=== PATIENT | male | born 1940 | race Caucasian/White ===

== ENCOUNTER → 2017-12-16 | Outpatient (CLI) | payer MEDICARE, OTHER ==
[~2017-12-16] MED LIST: ASPI81TA28 PO; CHOL500021 PO; COEN1CAP17 PO; CRS/10 PO; CYAN1LOZ2 PO; FLUT50SP45 NAE; LUTE6TAB PO; NAPR1TAB9 PO; RABE20TA5 PO; VITA1CAP5 PO; [UNRECOGNIZED DRUG - CODE] PO
--- NOTE | 2017-12-16 14:16 | DIAGNOSTIC IMAGING REPORT ---
CHEST 2 VIEWS ROUTINE CLINICAL HISTORY: Preoperative chest COMPARISON STUDY: No previous studies for comparison. FINDINGS: The cardiac and mediastinal contours are normal. There is no evidence of focal pulmonary consolidation. There is no evidence of failure. No pleural effusions are visualized.[ IMPRESSION: No active disease in the chest. Electronically signed by: Sj Shen M.D. 12/16/2017 2:14 PM Dictated Date/Time: 12/16/2017 2:09 PM
[2017-12-16 14:30] LABS: BASO % 0.6 %; BASO ABS # 0.05 K/uL (0-0.2); EOS % 4.8 %; EOS ABS # 0.37 K/uL (0-0.5); HEMATOCRIT 39.6 % (42-52); HEMOGLOBIN 13.8 g/dL (14.0-18.0); IG# 0.03 K/uL (0.00-0.02); LYMPH ABS # 2.78 K/uL (1.2-3.4); MEAN CELL VOLUME 88.4 fL (80-100); MEAN CORPUSCULAR HEMOGLOBIN 30.8 pg (25-34); MEAN CORPUSCULAR HGB CONC 34.8 g/dl (32-36); MEAN PLATELET VOLUME 11.8 fL (7.4-10.4); MONO % 6.5 %; NEUT % 51.7 %; NEUT ABS # 3.99 K/uL (1.4-6.5); PLATELET COUNT 196 K/uL (130-400); RED CELL DISTRIBUTION WIDTH CV 13.1 % (11.5-14.5); RED CELL DISTRIBUTION WIDTH SD 42.3 fL (36.4-46.3); WHITE BLOOD COUNT 7.72 K/uL (4.8-10.8)
[2017-12-16 14:38] LABS: ALBUMIN 3.8 gm/dl (3.4-5.0); BLOOD UREA NITROGEN 19 mg/dl (7-18); CALCIUM 8.7 mg/dl (8.5-10.1); CARBON DIOXIDE 25 mmol/L (21-32); GLUCOSE 142 mg/dl (70-99); POTASSIUM 3.8 mmol/L (3.5-5.1); SODIUM 138 mmol/L (136-145)
[2017-12-16 14:39] LABS: PTT PATIENT 25.7 SECONDS (21.0-31.0)
[2017-12-17 05:45] LABS: HEMOGLOBIN A1C 5.6 % (4.5-5.6)
== END | disposition home or self-care (01) ==
LOC: C.CPL 14:02
PROVIDERS: ATTEND Orthopaedic Surgery Sports Medicine
DX: Z01.810 Encounter for preprocedural cardiovascular examination (principal); Z01.811 Encounter for preprocedural respiratory examination; Z01.812 Encounter for preprocedural laboratory examination

== ENCOUNTER 2018-07-22 06:05 | Inpatient (IN) ==
--- NOTE | 2018-06-25 10:38 | Anesthesiology Consultation ---
Date of Service June 25, 2018 Assessment & Plan (1) Encounter for pre-operative examination: Chart Review Chart Review: Acceptable Risk for Surgery and Patient NOT seen in Pre Admission Testing History Surgery Operation Date: 07/22/18 11:35 Proposed Procedures p Left Total Knee Arthroplasty - Shawn Calero MD Height/Weight Height: 5 ft 8 in Weight: 77.111 kg Allergies Allergy/AdvReac Type Severity Reaction Status Date / Time No Known Allergies Allergy Verified 06/12/18 13:12 Medications Home Medications Medication Instructions Recorded Confirmed Last Taken aspirin [Aspir-81] 81 mg PO HS 06/12/18 06/12/18 Unknown cholecalciferol (vitamin D3) 5,000 unit PO QPM 06/12/18 06/12/18 Unknown [Vitamin D3] coenzyme Q10 200 mg PO QPM 06/12/18 06/12/18 Unknown cyanocobalamin (vitamin B-12) 2,500 mcg PO QPM 06/12/18 06/12/18 Unknown fluticasone [Flonase Allergy 2 spray INTRANASAL QPM 06/12/18 06/12/18 Unknown Relief] glucosamine [id number] 1,500 mg PO QPM 06/12/18 06/12/18 Unknown lisinopril 10 mg PO HS 06/12/18 06/12/18 Unknown lutein-zeaxanthin 1 tab PO QPM 06/12/18 06/12/18 Unknown naproxen sodium 220 - 440 mg PO BID PRN 06/12/18 06/12/18 Unknown rabeprazole [Aciphex] 40 mg PO QPM 06/12/18 06/12/18 Unknown rosuvastatin 5 mg PO HS 06/12/18 06/12/18 Unknown vitamin E 400 unit PO QPM 06/12/18 06/12/18 Unknown Past Medical History Medical History Duodenal ulcer HX Esophagitis FALL 2017 GERD (gastroesophageal reflux disease) History of tooth extraction Hyperlipidemia Hypertension Kidney stones Osteoarthritis Past Surgical History Surgical History History of colonoscopy History of esophagogastroduodenoscopy (EGD) X 2 Social History Smoking Status: Former smoker tobacco type: cigarettes Do You Dip or Chew Tobacco: No Smoking End Date: QUIT 1977 Hx Alcohol Use: No Testing Electrocardiogram Date: 02/11/18 NSR at 77bpm. Cannot rule out inferior infarct, age undetermined. Chest X-Ray Date: 02/11/18 Findings: + NAD Stress Test Date: 02/21/18 Type: exercise Exercise stress ECHO/EKG negative for ischemia at 107% MPHR. 5.7 METS. LVEF 66% . Mild TR. Laboratory Results 06/11/18 WBC 7.98 H/H 13.4/39.3 PLATELETS 206 SODIUM 139 POTASSIUM 3.8 CHLORIDE 107 CO2 25 BUN 18 CREATININE 1.20 GLUCOSE 120 PT 10.2 PTT 24.3 INR 1.0 UA negative TYPE AND SCREEN A+Ab-
--- NOTE | 2018-07-21 16:24 | History and Physical Report ---
DATE OF ADMISSION: 07/22/2018 CHIEF COMPLAINT: Chronic left knee pain. HISTORY OF PRESENT ILLNESS: This is a 77-year-old male patient of Dr. Calero'oniel complaining of chronic left knee pain, longstanding, now progressively getting worse. The patient has been diagnosed with end-stage osteoarthritis per clinical and radiographic exams. The patient has failed conservative treatment including intraarticular injections, anti-inflammatories and bracing. He has increased pain with weightbearing activities and his pain does interfere with his activities of daily living. PAST MEDICAL HISTORY: Hypertension, hypercholesterolemia, rheumatoid arthritis, sciatica, acid reflux, esophagitis, kidney stones, skin cancer. SOCIAL HISTORY: Nonsmoker, nondrinker. PAST SURGICAL HISTORY: He has had dental surgery in the past. FAMILY HISTORY: Noncontributory. REVIEW OF SYSTEMS: Chronic left knee pain, otherwise denies any shortness of breath, chest pain, nausea, vomiting other joint complaints. MEDICATIONS: 1. Aspirin 81 mg daily, vitamin D3 5000 units with vitamin E 400 units daily. 2. CoQ10 200 mg daily. 3. Lutein zeaxanthin 25/5. 4. Glucosamine daily. 5. EpiPen as needed. 6. Rosuvastatin 10 mg 1/2 tablet daily. 7. Aciphex 20 mg 2 tablets daily, lisinopril 10 mg daily. ALLERGIES: No known drug allergies; however, he does have an EpiPen. PHYSICAL EXAMINATION: GENERAL: Well-developed, well-nourished 77-year-old male in no acute distress. He is alert and oriented x3 and pleasant. HEENT: Normocephalic, atraumatic. Extraocular motions are intact. Pupils are equal, reactive to light. HEART: Regular rate and rhythm, no murmurs. LUNGS: Clear. ABDOMEN: Soft, nontender, bowel sounds present. EXTREMITIES: Left knee reveals a varus deformity with medial joint line tenderness. He has a mild effusion with 0-135 degrees of motion. He has crepitation with passive range of motion, 4/5 strength. NEUROLOGIC: Neurovascularly intact in his left lower extremity. DIAGNOSES: Left knee end-stage osteoarthritis, hypertension, hypercholesterolemia, rheumatoid arthritis of the hand, sciatica, acid reflux, history of kidney stones, skin cancer and esophagitis. PLAN: The patient was advised of his diagnosis. Indications, risks, benefits, postop course have all been reviewed. The patient wished to proceed with a left total knee arthroplasty. Necessary consent forms, preoperative testing clearances will be obtained.
[~2018-07-22 06:05] MED LIST changes: +ACETAMINOPHEN 500 MG TAB PO SCH; -ASPI81TA28 PO; +CEFAZOLIN 1000MG 1,000 MG/7.5 ML SYR IV SCH; -CHOL500021 PO; -COEN1CAP17 PO; -CRS/10 PO; -CYAN1LOZ2 PO; +CeleBREX 200 MG CAP PO SCH; +FAMOTIDINE 20 MG TAB PO SCH; -FLUT50SP45 NAE; +GABAPENTIN 300 MG PO SCH; +LR 500ML BOLUS, THEN 15ML/HR IV SCH; -LUTE6TAB PO; +METOCLOPRAMIDE HCL 10 MG TABLET PO SCH; -NAPR1TAB9 PO; -RABE20TA5 PO; +ROPIVACAINE 0.5% HCL/PF 150 MG, BUPIVACAINE 0.5% MPF 30 ML, EPINEPHrine 30MG/30ML (OR U... INFIL SCH; +TRANEXAMIC ACID 1,000 MG **IV Pre-op IV SCH; -VITA1CAP5 PO; -[UNRECOGNIZED DRUG - CODE] PO; +dexAMETHasone 4 MG TAB PO SCH
[2018-07-22] MEDS ORDERED: BUPIVACAINE 0.5 % 5 MG/1 ML PF 10ML VIAL ONE (06:18)
[2018-07-22] MEDS ORDERED: ROPIVACAINE 0.5% 5 MG/ML 30 ML VIAL ONE (06:18)
[2018-07-22] MEDS ORDERED: EPINEPHrine INJ 1 MG/ML AMP ONE (06:19)
[2018-07-22] MEDS ORDERED: TRANEXAMIC ACID 1,000 MG **IV Intra-op IV SCH (06:30)
[2018-07-22] MEDS ORDERED: fentaNYL citrate 100 MCG/2 ML VIAL ONE (06:55)
[2018-07-22] MEDS ORDERED: MIDAZOLAM HCL 1 MG/ML 2ML VIAL ONE ×2 (06:55→09:34)
--- NOTE | 2018-07-22 07:06 | History & Physical Bridge Note ---
Date of Service July 22, 2018 History & Physical Bridge Note I have examined the patient, reviewed the History & Physical and in the interval since the performance of the History & Physical I have noted the following changes of clinical significance: no changes noted
[2018-07-22] MEDS ORDERED: BACITRACIN INJ 50,000 UNIT VIAL ONE (07:23)
[2018-07-22] MEDS ORDERED: ORTHO JOINT ANESTHETIC ONE (07:23)
[2018-07-22] MEDS ORDERED: POVIDONE-IODINE OP SOLN 30 ML BTL ONE (07:23)
[2018-07-22] MEDS ORDERED: LIDOCAINE HCL 2% MPF (LOCAL) 5 ML VIAL INFIL ONE (08:45)
[2018-07-22] MEDS ORDERED: CEFAZOLIN 250 MG/ML 1 GM VIAL ONE (09:12)
[2018-07-22] MEDS ORDERED: ATROPINE SULFATE 0.1 MG/ML 10ML SYR IV PRN (09:23)
[2018-07-22] MEDS ORDERED: ePHEDrine sulfate 50 MG/ML AMP IV PRN (09:23)
[2018-07-22] MEDS ORDERED: PHENYLEPHRINE 100MCG/ML 5ML SYR ONE (09:54)
[2018-07-22] MEDS ORDERED: CEFAZOLIN 1000MG 1,000 MG/7.5 ML SYR IV SCH (10:15)
--- NOTE | 2018-07-22 11:01 | Post Operative Brief Note ---
Immediate Post Op Note v1 Date of Surgery July 22, 2018 Pre & Post Diagnosis Operation Date: 07/22/18 08:20 Pre-Op Diagnosis: LEFT KNEE OSTEOARTHRITIS Post-Op Diagnosis: LEFT KNEE OSTEOARTHRITIS Procedure Operation Date: 07/22/18 08:20 Actual Procedures p Left Total Knee Arthroplasty(Left) - Shawn Calero MD Surgeon Shawn Calero MD Kennel Attendant Toby CASTELAN Estimated Blood Loss 5 Findings Consistent with Post-Op Diagnosis Specimens Bone cuts Drains Hemovac Drain Anesthesia Type Spinal MAC Complications none Disposition Accompanied Patient To Recovery: No Disposition: Recovery Room Overlapping Procedure I was present for: the critical portions of procedure.
--- NOTE | 2018-07-22 11:28 | XRay Report ---
XR knee LT 2V routine CLINICAL HISTORY: Surgical Post Op COMPARISON: None FINDINGS: Alignment of the total left knee arthroplasty is anatomic. There is no fracture or unexpec yvonne radiopaque foreign body. Hardware is intact. There are drains and skin kingston. IMPRESSION: Expected findings following total left knee arthroplasty. Electronically signed by: Abel Patrick M.D. 07/22/2018 11:26 AM
--- NOTE | 2018-07-22 12:26 | Anesthesiology Progress Note ---
Date of Service July 22, 2018 Anesthesia Post Procedure Vital Signs Vital Signs: Temp Pulse Pulse Resp BP BP Pulse Ox 07/22/18 12:15 36.7 C 74 19 106/56 L 98 07/22/18 12:05 36.7 C 81 19 109/55 L 98 07/22/18 11:55 80 16 106/56 L 94 07/22/18 11:45 79 12 108/52 L 98 07/22/18 11:35 78 14 105/51 L 94 07/22/18 11:25 77 15 97/67 L 96 07/22/18 11:15 79 15 109/53 L 94 07/22/18 11:05 80 24 108/53 L 98 07/22/18 10:55 79 15 103/49 L 99 07/22/18 10:48 36.3 C L 89 16 104/61 100 07/22/18 06:39 36.7 C 81 18 158/74 H 97 Notes Mental Status: alert / awake / arousable Patient Amnestic to Procedure: Yes Nausea / Vomiting: adequately controlled Pain: adequately controlled Airway Patency, RR, SpO2: stable & adequate BP & HR: stable & adequate Hydration State: stable & adequate Neuraxial Anesthesia: was administered and sensory block is resolving Anesthetic Complications: no major complications apparent
[2018-07-22] MEDS ORDERED: NALOXONE HCL 0.4 MG/1 ML VIAL/CARP IV PRN (12:48)
[2018-07-22] MEDS ORDERED: BISACODYL 10 MG SUPP PR PRN (12:48)
[2018-07-22] MEDS ORDERED: METOCLOPRAMIDE HCL INJ 5 MG/ML 2 ML VIAL IV PRN (12:48)
[2018-07-22] MEDS ORDERED: HYDROmorphone INJ 0.5 MG/0.5 ML SYR IV PRN (12:48)
[2018-07-22] MEDS ORDERED: ONDANSETRON INJ 2 MG/ML 2 ML VIAL IV PRN (12:48)
[2018-07-22] MEDS ORDERED: MAGNESIUM HYDROXIDE SUSP 30 ML UDC PO PRN (12:48)
--- NOTE | 2018-07-22 13:29 | Consultation ---
Date of Consultation July 22, 2018 Assessment & Plan (1) Status post left knee replacement: Surgery well tolerated. No complications -Pain management, nausea control, bowel regimen and activity instruction per primary team -ASA 81mg po BID per primary team (2) GERD (gastroesophageal reflux disease): Stable. Patient denies symptoms at present -Protonix 40mg po daily -Patient may be discharged on his home Aciphex (3) Hypertension: well controlled. Blood pressure presenlty 106/56 -Continue Lisinopril 10mg po daily -Continue to monitor (4) Hyperlipidemia: Chronic -Continue Crestor 5mg po daily Vitamins/Supplements - patient may continue his home supplements/vitamins to include Vitamin D, Vitamin E, CoQ10, B12, Lutein and Glucosamine on discharge Thank you very much for this consult. Medicine/Hospitalist team will sign off. Please do not hesitate to contact us with additional questions or concerns. History of Present Illness Reason for Consultation: Post operative medical management Attending Physician: Shawn Calero MD History of Present Illness Mr. Berry is a pleasant 78yo male with history of HTN, HLP, GERD with esophagitis, chronic left knee pain and OA which failed conservative therapies. He had left total knee arthroplasty performed by Dr. Ojeda today. Procedure well tolerated. No complications identified. Patient is without pain or nausea presently. He is eating lunch without difficulty. No additional complaints. No BM, flatus or UOP yet. Allergies Allergy/AdvReac Type Severity Reaction Status Date / Time No Known Allergies Allergy Verified 07/22/18 06:31 Home Medications Home Medications Medication Instructions Recorded Confirmed Type aspirin [Aspir-81] 81 mg PO HS 06/12/18 07/22/18 History cholecalciferol (vitamin D3) 5,000 unit PO QPM 06/12/18 07/22/18 History [Vitamin D3] coenzyme Q10 200 mg PO QPM 06/12/18 07/22/18 History cyanocobalamin (vitamin B-12) 2,500 mcg PO QPM 06/12/18 07/22/18 History fluticasone [Flonase Allergy 2 spray INTRANASAL QPM 06/12/18 07/22/18 History Relief] glucosamine [id number] 1,500 mg PO QPM 06/12/18 07/22/18 History lisinopril 10 mg PO HS 06/12/18 07/22/18 History lutein-zeaxanthin 1 tab PO QPM 06/12/18 07/22/18 History naproxen sodium 220 - 440 mg PO BID PRN 06/12/18 07/22/18 History rabeprazole [Aciphex] 40 mg PO QPM 06/12/18 07/22/18 History rosuvastatin 5 mg PO HS 06/12/18 07/22/18 History vitamin E 400 unit PO QPM 06/12/18 07/22/18 History Patient History Medical History Duodenal ulcer HX Esophagitis FALL 2017 GERD (gastroesophageal reflux disease) Hyperlipidemia Hypertension Kidney stones Osteoarthritis Surgical History Status post left knee replacement June 2018 - Dr. 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 Scientist Required: No Beliefs That Will Affect Care: None Current Living Situation: Spouse Other Information That Helps Us Care for You: No Feels Safe at Home: Yes Safety Concerns: Feels Safe At This Time Smoking Status: Former smoker Hx Alcohol Use: No Review of Systems General: patient denies fevers/chills/sweats/malaise/weight loss or weight gain Skin: patient denies rashes/lesions HEENT: patient denies headache/visual changes/hearing changes/sore throat/dysphagia/odynophagia/neck pain Heart: patient denies chest pain/palpitations/syncope/orthopnea Lungs: patient denies cough/wheezing/shortness of breath Abd: patient denies abdominal pain/nausea/vomiting/diarrhea/constipation/jeane aditi/hematochezia : patient denies hematuria/dysuria/frequency/urgency Heme: patient denies easy bleeding/bruising Endo: patient denies polyuria/polydipsia Physical Exam Vital Signs (Past 24 Hours): Last Vital Signs Temp 36.7 C 07/22/18 12:15 Pulse 74 07/22/18 12:15 Resp 19 07/22/18 12:15 BP 106/56 L 07/22/18 12:15 Pulse Ox 98 07/22/18 12:15 Physical Exam: General: patient resting comfortably, NAD, non-toxic in appearance, AA&O x 4 Skin: warm, dry, no rashes or lesions HEENT: NC/AT, PERRL, EOMI, anicteric sclera, conjunctiva without injection, external ear normal to inspection and nontender, nares patent, moist mucus membranes, dentition intact, no oropharyngeal lesions, neck supple, trachea midline, no LAD, no thyromegaly, no JVD Heart: +S1/S2, regular, no m/r/g Lungs: equal air entry bilaterally, no rales/rhonchi/wheezes Abd: +BS, soft, NT/ND, no masses/organomegaly/ascites Ext: warm, 2+ pulses in UE/LE bilaterally, no clubbing/cyanosis or edema, prakash ssing in place on LLE, c/d/i, SCDs in place, Neuro: nonfocal, patient AA&O x 4, speech intact, no facial droop, no sensation or mobility yet (1) GERD (gastroesophageal reflux disease) Esophagitis presence: with esophagitis Qualified Code(s): K21.0 - Gastro- esophageal reflux disease with esophagitis (2) Hypertension Hypertension type: essential hypertension Qualified Code(s): I10 - Essential (primary) hypertension (3) Hyperlipidemia Hyperlipidemia type: unspecified Qualified Code(s): E78.5 - Hyperlipidemia, unspecified
[2018-07-22] MEDS: ACETAMINOPHEN 500 MG TAB PO SCH ×2 (13:36→21:03)
--- NOTE | 2018-07-22 16:09 | Operative Report ---
Post Operative Report Pre & Post Diagnosis Operation Date: 07/22/18 08:20 Pre-Op Diagnosis: LEFT KNEE OSTEOARTHRITIS Post-Op Diagnosis: LEFT KNEE OSTEOARTHRITIS Procedure Operation Date: 07/22/18 08:20 Actual Procedures p Left Total Knee Arthroplasty(Left) - Shawn Calero MD Surgeon Shawn Calero MD Permanent Mold Supervisor Toby CASTELAN Estimated Blood Loss 5 Findings Consistent with Post-Op Diagnosis Specimens Bone cuts Drains 2 Hemovac Anesthesia Type Spinal MAC Complications none Disposition Accompanied Patient To Recovery: No Disposition: Recovery Room Indications 77-year-old male with bilateral DJD knee left greater than right [id number] medial compartment on x-rays failed conservative management. Description of Procedure The patient was taken to the operating room and anesthetized under spinal MAC adductor nerve block. Patient was placed supine on the the operating table. A pneumatic tourniquet was placed about the left upper thigh. The knee exam demonstrated slight flexion contracture tight medial compartment. The involved leg was elevated exsanguinated with Esmarch bandage and the pneumatic tourniquet was raised to 300 millimeters mercury. A longitudinal incision was made across the anterior knee. Skin flaps were elevated. An incision was made into the medial retinaculum and extended up into the mid third of the quadriceps tendon and extended down to the tibial tubercle. Intra-articular findings demonstrated primarily be compartment OA [id number] and some mild/moderate chondral malacia medial facet of the patella. The knee was exposed by excising cruciate ligaments and menisci. The infrapatellar fat pad was resected. The fat pad over the anterior femur at the upper aspect of the articular surface was resected for placement of the component in that area. A subperiosteal peel lateral release was performed around the patella The [employer] Provider[employer]ney 2.0 total knee arthroplasty system was utilized for the procedure. The custom femoral cutting guide was pinned in position. The distal femoral cut was made. The size 5, 5 in 1 cutting block was placed. The anterior posterior and chamfer cuts were made. The knee was extended and a free hand cut technique was performed to the patella. The patella with was measured and the width was reproduced using a 32 patella component. 3 drill holes are made for the patella component pegs. The tibia was then subluxed. The custom tibial cutting block was pinned in position and the proximal tibial cut was made with the oscillating saw. The size 5 tibial trial was externally rotated in line with the tibial tubercle and pinned in position. The punch for the stem was used. The femoral trial was inserted and centered the notch cutting devices were used and the collet was placed. Tibial trials were used for the insert. The size 10 trial gave balanced ligaments through full range of motion. Patella tracking was assessed with range of motion. The patella tracked centrally. The trials were removed. The Orthomix anesthetic cocktail was injected per protocol. The cut bone surfaces and soft tissue were copiously irrigated with antibiotic solution with bacitracin. The final components were cemented with Simplex cement. The final components were [employer] journey 2.0 size 5 left femur, 5 primary tibial baseplate, 10 mm high flex posterior stabilized poly-insert and 32 symmetrical patella. While the cement cured the Betadine soak was used per protocol. When the cement cured the knee was copiously irrigated with pulsatile lavage antibiotic solution with bacitracin. 2 drains were brought out laterally connected to Hemovac. The quadriceps tendon and medial retinaculum were closed with interrupted [id number] #1 Vicryl sutures. The knee was taken through full range of motion and repair was secure. The subcutaneous tissues were closed with 2-0 Vicryl sutures. The skin was closed with kingston. A sterile dressing was applied. The tourniquet was let down and the patient had good capillary refill to the extremity. The patient tolerated the procedure well. My physician pharmacy technician assistant Toby CASTELAN assisted in the procedure including prepping draping leg positioning soft tissue retraction instrument management and assisted in the closure ,dressings application and will participate in postoperative care the patient. I attest to the content of the Intraoperative Record and any orders documented therein. Any exceptions are noted below.
[2018-07-22] MEDS: CEFAZOLIN 2000MG 2,000 MG/15 ML SYR IV SCH (16:52)
[2018-07-22] MEDS: FERROUS GLUCONATE 324 MG TAB PO SCH (16:52)
[2018-07-22] MEDS: SODIUM CHLORIDE 0.9% 1000ML 1,000 ML IV SCH (18:30)
[2018-07-22] MEDS: LISINOPRIL 10 MG TAB PO SCH (21:02)
[2018-07-22] MEDS: ROSUVASTATIN CALCIUM 5 MG TAB PO SCH (21:02)
[2018-07-22] MEDS: DOCUSATE SODIUM 100 MG CAP PO SCH (21:02)
[2018-07-22] MEDS: CYANOCOBALAMIN (VITAMIN B-12) 2,500 MCG TAB.SUBL SL SCH (21:02)
[2018-07-22] MEDS: PANTOprazole 40 MG TAB PO SCH (21:02)
[2018-07-22] MEDS: ASPIRIN 81 MG ECTAB PO SCH (21:02)
[2018-07-22] MEDS: FLUTICASONE PROPIONATE NA SPR 16 GM BTL SCH (21:03)
[2018-07-22] MEDS: SENNA 8.6 MG TAB PO SCH (21:03)
[2018-07-23] MEDS: CEFAZOLIN 2000MG 2,000 MG/15 ML SYR IV SCH (00:34)
[2018-07-23] MEDS: OXYCODONE HCL IR 5 MG TAB (IMMEDIATE RELEASE) PO PRN ×3 (03:20→13:46)
[2018-07-23] MEDS: SODIUM CHLORIDE 0.9% 1000ML 1,000 ML IV SCH (03:21)
[2018-07-23] MEDS: ACETAMINOPHEN 500 MG TAB PO SCH ×3 (05:21→21:27)
[2018-07-23 06:13] LABS: Hematocrit (blood only) 35.1 % (42-52); Hemoglobin 12.1 g/dL (14.0-18.0); Mean Corpuscular Hgb Conc 34.5 g/dL (32-36); Mean Corpuscular Volume 89.8 fL (80-100); Mean Platelet Volume 11.6 fL (7.4-10.4); Platelet Count 210 K/uL (130-400); RDW Coefficient of Variation 13.5 % (11.5-14.5); RDW Standard Deviation 44.3 fL (36.4-46.3); Red Blood Count 3.91 M/uL (4.7-6.1); White Blood Count 20.13 K/uL (4.8-10.8)
[2018-07-23 06:54] LABS: BUN Creatinine Ratio 16.9 (10-20); Calcium 8.2 mg/dl (8.5-10.1); Creatinine Clr Calc Pharmacy 58.5 ml/min; Est GFR (African American) 80.5; Est GFR (Non-African American) 69.4; Potassium 4.4 mmol/L (3.5-5.1)
--- NOTE | 2018-07-23 08:41 | Progress Note ---
DATE: 07/23/2018 SUBJECTIVE: The patient is postop day #1 status post left total knee arthroplasty by Dr. Calero. Vital signs are stable. He was afebrile and hemoglobin was 12.1. The patient is currently lying in bed, doing his bedside exercises with nursing staff. Pain control is adequate and he denies shortness of breath, chest pain or lightheadedness. He has no overt complaints at this time. OBJECTIVE: Dressings are clean, dry and intact. Neurovascularly intact. Toes were mobile. Calves were soft, nontender. ASSESSMENT: Postop day #1 status post left total knee arthroplasty. PLAN: Continue Hemovac drain at this time due to 175 mL of drainage from the previous shift. He will be started on PT and OT protocols and continued on his DVT prophylaxis with aspirin b.i.d., SCDs and LEAH hose. Continue current pain regimen and the patient is planning for home health services upon discharge.
[2018-07-23] MEDS: MULTIVITAMIN TAB PO SCH (09:08)
[2018-07-23] MEDS: ASPIRIN 81 MG ECTAB PO SCH ×2 (09:08→21:27)
[2018-07-23] MEDS: DOCUSATE SODIUM 100 MG CAP PO SCH ×2 (09:08→21:24)
[2018-07-23] MEDS: FERROUS GLUCONATE 324 MG TAB PO SCH ×2 (09:09→18:14)
--- NOTE | 2018-07-23 11:38 | Anesthesiology Progress Note ---
Date of Service July 23, 2018 Anesthesia Post Procedure Vital Signs Vital Signs: Temp Pulse Pulse Pulse Resp BP BP 07/23/18 07:25 36.6 C 85 16 141/83 H 07/23/18 04:13 77 109/67 07/23/18 03:10 36.6 C 96 H 18 162/79 H 07/22/18 23:30 36.6 C 89 16 135/74 07/22/18 20:58 100 H 155/81 H 07/22/18 20:21 36.5 C 106 H 18 164/77 H 07/22/18 15:36 36.4 C L 91 H 19 111/62 07/22/18 14:30 98 H 18 145/72 H 07/22/18 13:46 07/22/18 13:32 83 18 126/72 07/22/18 13:00 36.5 C 74 19 115/72 07/22/18 12:30 36.5 C 80 21 103/65 07/22/18 12:15 36.7 C 74 19 106/56 L 07/22/18 12:05 36.7 C 81 19 109/55 L 07/22/18 11:55 80 16 106/56 L 07/22/18 11:45 79 12 108/52 L Pulse Ox 07/23/18 07:25 96 07/23/18 04:13 07/23/18 03:10 98 07/22/18 23:30 95 07/22/18 20:58 07/22/18 20:21 95 07/22/18 15:36 95 07/22/18 14:30 93 07/22/18 13:46 95 07/22/18 13:32 97 07/22/18 13:00 98 07/22/18 12:30 98 07/22/18 12:15 98 07/22/18 12:05 98 07/22/18 11:55 94 07/22/18 11:45 98 Pain Intensity Left Knee: Pain Intensity: 2 Notes Mental Status: alert / awake / arousable and participated in evaluation Patient Amnestic to Procedure: Yes Nausea / Vomiting: adequately controlled Pain: adequately controlled Airway Patency, RR, SpO2: stable & adequate BP & HR: stable & adequate Hydration State: stable & adequate Neuraxial Anesthesia: was administered and sensory block resolved Anesthetic Complications: no major complications apparent and Pt Satisfied with anesthetic care
--- NOTE | 2018-07-23 14:55 | Hospitalist Progress Note ---
Date of Service July 23, 2018 Assessment & Plan (1) Status post left knee replacement: POD #1 Pain generally controlled No significant edema of the lower extremity on the left Palpable pulses Patient started physical therapy and ambulation with a walker Further management per orthopedics (2) GERD (gastroesophageal reflux disease): Patient reports that his GERD is well controlled Continue AcipHex twice daily (3) Hypertension: Well-controlled Continue home lisinopril Follow per protocol (4) Hyperlipidemia: Continue rosuvastatin (Crestor) Patient reports that this is well-tolerated by him as a home medication (5) DVT prophylaxis: Aspirin twice daily Ambulate as tolerated Further chemical prophylaxis per orthopedics Thank you for including us in the care of this patient. Supervising Physician Co-Signing Physician Notes Attending Attestation - Chart reviewed, care plan d/w ANNELISE Kendrick. I agree w/ the tillman components of his documentation. Pt is s/p Left TKR. Labs/vitals acceptable although BPs elevated at times- 2nd to pain? Cont to monitor. Ihsan Schneider MD Subjective Patient is postoperative day #1 from a left knee arthroplasty with Dr. Calero. Patient reports minimal pain but states that the pain seems to be increase in his left leg. He did have neuropathy in that left leg yesterday but that is completely resolved. He has good sensation in the left foot. The patient is ambulate with a walker with therapy and has had no trouble with foot drop or difficulty with lifting that leg. The patient denies any nausea, vomiting, diarrhea. He has no dizziness lightheadedness when sitting up or with ambulation. He has had no drainage or discharge from the operative site. He has no other acute complaints. Physical Exam Vital Signs (Past 24 Hours): Last Vital Signs Temp 36.6 C 07/23/18 12:00 Pulse 94 H 07/23/18 12:00 Resp 17 07/23/18 12:00 BP 174/84 H 07/23/18 12:00 Pulse Ox 95 07/23/18 12:00 Physical Exam: GENERAL : No acute distress EYES: No icterus, gaze conjugate NOSE: No evidence of epistaxis MOUTH: No lesions or candidiasis NECK: Supple LUNGS: CTA B/L, no wheezes, rales or rhonchi HEART: Regular, rate controlled ABDOMEN: Soft, NT, ND, BS Present EXTREMITIES: No LE edema to either extremity, pedal pulses intact and equal bilaterally. Bandage and dressing dry and intact from the hip down to the foot on the left side. Sensation equal to the left foot versus the right foot. Patient able to actively move ankle foot and toes without pain. NEURO: A&OX3 Results & Data Laboratory Results Abnormal lab results 07/23/18 07/23/18 Range/Units 05:48 05:48 WBC 20.13 H (4.8-10.8) K/uL RBC 3.91 L (4.7-6.1) M/uL Hgb 12.1 L (14.0-18.0) g/dL Hct 35.1 L (42-52) % MPV 11.6 H (7.4-10.4) fL Chloride 109 H (98-107) mmol/L Glucose 141 H (70-99) mg/dl Calcium 8.2 L (8.5-10.1) mg/dl Diagnostic Findings XR knee LT 2V routine CLINICAL HISTORY: Surgical Post Op COMPARISON: None FINDINGS: Alignment of the total left knee arthroplasty is anatomic. There is no fracture or unexpected radiopaque foreign body. Hardware is intact. There are drains and skin kingston. IMPRESSION: Expected findings following total left knee arthroplasty. Electronically signed by: Abel Patrick M.D. 07/22/2018 11:26 AM
[2018-07-23] MEDS: PANTOprazole 40 MG TAB PO SCH (21:24)
[2018-07-23] MEDS: SENNA 8.6 MG TAB PO SCH (21:25)
[2018-07-23] MEDS: LISINOPRIL 10 MG TAB PO SCH (21:25)
[2018-07-23] MEDS: CYANOCOBALAMIN (VITAMIN B-12) 2,500 MCG TAB.SUBL SL SCH (21:26)
[2018-07-23] MEDS: ROSUVASTATIN CALCIUM 5 MG TAB PO SCH (21:26)
[2018-07-23] MEDS: FLUTICASONE PROPIONATE NA SPR 16 GM BTL SCH (21:28)
[2018-07-24] MEDS: OXYCODONE HCL IR 5 MG TAB (IMMEDIATE RELEASE) PO PRN ×2 (01:46→07:44)
[2018-07-24] MEDS: ACETAMINOPHEN 500 MG TAB PO SCH (05:27)
[2018-07-24] MEDS: DOCUSATE SODIUM 100 MG CAP PO SCH (07:42)
[2018-07-24] MEDS: FERROUS GLUCONATE 324 MG TAB PO SCH (07:42)
[2018-07-24] MEDS: ASPIRIN 81 MG ECTAB PO SCH (07:42)
[2018-07-24] MEDS: MULTIVITAMIN TAB PO SCH (07:42)
--- NOTE | 2018-07-24 08:38 | Progress Note ---
DATE: 07/24/2018 SUBJECTIVE: The patient is postop day 2, status post left total knee arthroplasty. He is currently sitting up in his chair at the bedside and eating breakfast. He has no complaints other than the knee feels a little bit tight this morning. Pain is controlled. He denies shortness of breath, chest pain or lightheadedness. He denies calf pain. He is hoping to go home today. OBJECTIVE: [place] dressings clean, dry and intact. Calves were soft, nontender. Neurovascularly intact. Toes were mobile. ASSESSMENT: Postop day 2, status post left total knee arthroplasty. PLAN: The patient will be continued on his PT and OT protocols today as well as his DVT prophylaxis and pain management. Plans will be for discharge to home today with home health services.
--- NOTE | 2018-07-24 11:35 | Hospitalist Progress Note ---
Date of Service July 24, 2018 Assessment & Plan (1) Status post left knee replacement: POD #2 Pain generally controlled No significant edema of the lower extremity on the left Palpable pulses equal bilaterally Did well with physical therapy Anticipate discharge home today (2) GERD (gastroesophageal reflux disease): Continue AcipHex twice daily (3) Hypertension: No hypertension since midnight Continue home lisinopril Follow per protocol Discussed need for good pain control once discharged home (4) Hyperlipidemia: Continue rosuvastatin Patient reports that this is well-tolerated by him as a home medication (5) DVT prophylaxis: Aspirin twice daily per orthopedics Continue to increase ambulation as tolerated Thank you for including us in the care of this patient. Patient okay for discharge per medicine service Supervising Physician Co-Signing Physician Notes Attending Attestation - Chart reviewed, care plan d/w ANNELISE Silverman in detail. I agree w/ the tillman components of her documentation. Pt's vitals and labs stable. From medical standpoint can d/c home when ok with primary service. Ihsna Schneider MD Subjective POD #2 total left knee arthroplasty Pain generally controlled Had some pain in his left heel overnight. No falls or instability. Denies fever, chills, sweats, rigors No shortness of breath, chest pain, chest tightness No acute complaints Physical Exam Vital Signs (Past 24 Hours): Last Vital Signs Temp 36.6 C 07/24/18 08:29 Pulse 79 07/24/18 08:29 Resp 16 07/24/18 08:29 BP 128/79 07/24/18 08:29 Pulse Ox 97 07/24/18 08:29 Physical Exam: GENERAL : No acute distress EYES: No icterus, gaze conjugate NOSE: No evidence of epistaxis MOUTH: No lesions or candidiasis NECK: Supple LUNGS: CTA B/L, no wheezes, rales or rhonchi. Good aeration to the bases HEART: Regular, rate controlled ABDOMEN: Soft, NT, ND, BS Present EXTREMITIES: No LE edema, pedal pulses intact bilaterally. LEAH hose in place on left leg. NEURO: A&OX3 Results & Data Laboratory Results No new data. Chart reviewed Diagnostic Findings No new images. Chart reviewed
--- NOTE | 2018-07-25 00:48 | Discharge Summary ---
DISCHARGE DIAGNOSIS: Degenerative joint disease, left knee. SECONDARY DIAGNOSES: Hypertension, hypercholesterolemia, rheumatoid arthritis, sciatica, gastroesophageal reflux disease, esophagitis, kidney stones, skin carcinoma in the past. CONSULTS: Maddison Gunn DO COMPLICATIONS: None. PROCEDURES: Left total knee arthroplasty performed by Dr. Calero on 07/22/2018. BRIEF HISTORY: As dictated in history and physical. HOSPITAL SUMMARY: The patient was admitted on the above-noted date and had the above-noted surgery performed, which he tolerated well. On the first postoperative day, patient was awake and alert and vital signs were stable. He was afebrile. Hemoglobin was 12.1. He was lying in bed doing his bedside exercises with nursing staff. Pain was controlled and he denied shortness of breath, chest pain, or lightheadedness. Dressings are clean, dry and intact. Toes were mobile. Neurovascularly intact. Calves are soft, nontender and he was started on physical therapy protocol and continued on DVT prophylaxis and pain management. By his second postoperative day, he continued remain stable. He was up in a chair at the bedside eating breakfast. He had no complaints. Pain was controlled and was hoping to go home. Silverlon dressing was clean, dry, and intact. Calves are supple and soft, nontender. Neurovascularly intact. Toes were mobile. He is progressing with his physical therapy and remaining stable and it was felt he could be discharged home on 07/24/2018. For further review, please see chart. LABORATORY AND X-RAY DATA: As per chart. DISCHARGE INSTRUCTIONS: The patient was discharged to home in satisfactory condition with home health services. DIET: Regular. ACTIVITY: Weightbearing as tolerated on left lower extremity. Follow TK instruction sheets and special care instructions as noted. Follow up Dr. Calero in 2 weeks. The patient to call for appointment if one has not been made for you. DISCHARGE MEDICATIONS: Acetaminophen 1000 mg p.o. q. 8 hours, aspirin 81 mg p.o. b.i.d. for 30 days, oxycodone 5 mg p.o. q. 4 hours p.r.n., sennoside 17.2 mg p.o. daily. Resume home meds as listed. Stop taking previous aspirin dosage, glucosamine, and naproxen.
== END 2018-07-24 11:39 | disposition home health service (06) ==
LOC: ASU 06:05 → 3E 12:33

== ENCOUNTER 2021-12-27 07:55 | Inpatient (IN) ==
--- NOTE | 2021-12-13 09:53 | PAT Medication Instructions ---
Medication Instructions Date of Service December 13, 2021 Home Medications cholecalciferol (vitamin D3) 125 mcg (5,000 unit) tablet (Vitamin D3) 5,000 unit PO QPM coenzyme Q10 200 mg capsule 200 mg PO QPM cyanocobalamin (vitamin B-12) 2,500 mcg tablet 2,500 mcg PO QPM fluticasone propionate 50 mcg/actuation nasal spray,suspension (Flonase Allergy Relief) 2 spray intranasal QPM PRN allergies lisinopril 10 mg tablet 10 mg PO HS lutein 25 mg-zeaxanthin 5 mg capsule 1 tab PO QPM rabeprazole 20 mg tablet,delayed release (AcipHex) 40 mg PO QPM rosuvastatin 5 mg tablet 5 mg PO HS epinephrine 0.3 mg/0.3 mL injection, auto-injector (EpiPen) 0.3 mg IM DIRECTED PRN Allergic Reaction pfmwbjpnvxz-fmx-hyenyfejk-vitC capsule (Glucosamine Complex-MSM) 1 cap PO QPM Continue as directed epinephrine 0.3 mg/0.3 mL injection, auto-injector (EpiPen) 0.3 mg IM DIRECTED PRN Allergic Reaction (if needed) STOP taking 2 weeks before surgery (or as soon as possible if surgery is within 2 weeks) coenzyme Q10 200 mg capsule 200 mg PO QPM lutein 25 mg-zeaxanthin 5 mg capsule 1 tab PO QPM aldnyyeacus-uwg-ofdnzhvag-vitC capsule (Glucosamine Complex-MSM) 1 cap PO QPM Take evening before surgery cholecalciferol (vitamin D3) 125 mcg (5,000 unit) tablet (Vitamin D3) 5,000 unit PO QPM cyanocobalamin (vitamin B-12) 2,500 mcg tablet 2,500 mcg PO QPM fluticasone propionate 50 mcg/actuation nasal spray,suspension (Flonase Allergy Relief) 2 spray intranasal QPM PRN allergies (if needed) lisinopril 10 mg tablet 10 mg PO HS rabeprazole 20 mg tablet,delayed release (AcipHex) 40 mg PO QPM rosuvastatin 5 mg tablet 5 mg PO HS Other Notes If you have any questions please call us at [phone] or [phone] or [phone] or [phone]
--- NOTE | 2021-12-21 12:44 | Anesthesiology Consultation ---
Date of Service December 21, 2021 Assessment & Plan (1) Encounter for pre-operative examination: - PCP office visit (12/19/21): " The patient can easily perform 4 METS. In evaluation of cardiac risk, using calculator from Shanel et. al 2012 the patient's estimated perioperative cardiac (per ACS) risk is 0.21%. Patient is average pulmonary risk. The patient is overall low risk for perioperative complications." - COVID screening: Per assessment on 12/21: No known COVID-19 positive contacts or current COVID-19 related symptoms. Travel screen negative. 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 Patient vaccinated Surgeon arranging preop COVID testing. Awaiting results. - S/P Left TKA (07/22/18): SAB x multiple attempts (see report for full details) + PNB at [facility] Chart Review Chart Review: Acceptable Risk for Surgery and Patient seen in Pre Admission Testing Teaching & Discussion Pre-Anesthesia Teaching/Discussion Notes: Instructed NPO after midnight before surgery,except medications with 15 cc of water. Medication instructions provided according to the PAT guidelines. History Surgery Operation Date: 12/27/21 08:15 Proposed Procedures p Left Knee Patellar Revision - Shawn Calero MD Height/Weight Height: 5 ft 8 in Weight: 82.5 kg Allergies Allergy/AdvReac Type Severity Reaction Status Date / Time Japanese food Allergy Anaphylaxis Uncoded 12/21/21 13:01 Medications Home Medications Medication Instructions Recorded Confirmed Last Taken cholecalciferol (vitamin D3) 125 5,000 unit PO QPM 06/12/18 10/23/18 10/22/18 mcg (5,000 unit) tablet (Vitamin D3) coenzyme Q10 200 mg capsule 200 mg PO QPM 06/12/18 10/23/18 10/22/18 cyanocobalamin (vitamin B-12) 2,500 mcg PO QPM 06/12/18 10/23/18 10/22/18 2,500 mcg tablet fluticasone propionate 50 2 spray intranasal QPM PRN 06/12/18 10/23/18 10/22/18 mcg/actuation nasal allergies spray,suspension (Flonase Allergy Relief) lisinopril 10 mg tablet 10 mg PO HS 06/12/18 10/23/18 10/22/18 lutein 25 mg-zeaxanthin 5 mg 1 tab PO QPM 06/12/18 10/23/18 10/22/18 capsule rabeprazole 20 mg tablet,delayed 40 mg PO QPM 06/12/18 10/23/18 10/22/18 release (AcipHex) rosuvastatin 5 mg tablet 5 mg PO HS 06/12/18 10/23/18 10/22/18 epinephrine 0.3 mg/0.3 mL 0.3 mg IM DIRECTED PRN Allergic 10/23/18 10/23/18 Unknown injection, auto-injector (EpiPen) Reaction urvtlrwsyoe-lqa-nllshwxac-vitC 1 cap PO QPM 10/23/18 10/23/18 10/22/18 capsule (Glucosamine Complex-MSM) Past Medical History Medical History Duodenal ulcer Hx GERD (gastroesophageal reflux disease) Hx of fall Fell down a flight of stairs (08/2021) > reduction in ER Hyperlipidemia Hypertension Kidney stones Lung abnormality Lung nodules Follows with Dr. Shaver ([facility]/[place]) Osteoarthritis Exercise / Class Metabolic Activity II 4-5 Yardwork/Stairs/Walk up hill Past Surgical History Surgical History History of colonoscopy History of esophagogastroduodenoscopy (EGD) x2 History of tooth extraction Hx of cystoscopy Status post left knee replacement Left TKA (07/22/18): SAB x multiple attempts (see report for full details) + PNB at [facility] Past Anesthesia History No Hx of Anesthesia Complications and No Family Hx of Anesthesia Complications History of PONV No Hx of PONV and No Hx of Motion Sickness Social History Smoking Status: Former smoker tobacco type: cigarettes Smoking cigarettes per day: 90 Do You Dip or Chew Tobacco: No Smoking End Date: quit 1977 Hx Alcohol Use: No Hx Substance Use: No substance use type: does not use Review of Systems Patient denies chest pain, shortness of breath, dyspnea on exertion, fever, chills, cough, wheezing, palpitations. Physical Exam Vital Signs VITALS BP 120/76 P 80 TEMP 97.9 SP02 95%RA RESP 16 PHYSICAL Full cervical extension range of motion. Full TMJ range of motion. TMD 3 finger breaths Mallampati Score 3 Dentition: lower partial Lungs: clear throughout to auscultation Cardiac: regular rate and rhythm, no murmurs noted Spine: normal Carotid arteries: negative bruit Extremities: no edema Lab Results Anesthesia Preop Results Results Anesthesia Widget: WBC 8.26 K/uL (4.8-10.8) 11/22/21 Hgb 14.0 g/dL (14.0-18.0) 11/22/21 Hct 41.0 % (42-52) L 11/22/21 Plt 257 K/uL (130-400) 11/22/21 Na 137 mmol/L (136-145) 12/21/21 K 4.4 mmol/L (3.5-5.1) 12/21/21 Cl 104 mmol/L (98-107) 12/21/21 CO2 27 mmol/L (21-32) 12/21/21 BUN 21 mg/dl (6-23) 12/21/21 Creat 1.29 mg/dl (0.6-1.4) 12/21/21 Glucose Level 100 mg/dl (70-99(Fasting)) H 12/21/21 PT 10.7 Seconds (9.0-12.0) 12/21/21 PTT 25.0 Seconds (21.0-31.0) 12/21/21 INR 1.0 (0.9-1.1) 12/21/21 HA1c 5.9 % (4.5-5.6) H 12/21/21 Urine Color Yellow 12/21/21 Urine Appearance Clear (Clear) 12/21/21 Urine pH 6.5 (4.5-7.5) 12/21/21 Urine Specific [place] 1.024 (1.000-1.030) 12/21/21 Urine Protein Negative (Negative) 12/21/21 Urine Glucose (UA) Negative (Negative) 12/21/21 Urine Ketones Trace (Negative) H 12/21/21 Urine Blood Negative (Negative) 12/21/21 Urine Nitrite Negative (Negative) 12/21/21 Urine Bilirubin Negative (Negative) 12/21/21 Urine Urobilinogen Negative (Negative) 12/21/21 Urine Leukocyte Esterase Negative (Negative) 12/21/21 Blood Type A Positive 12/21/21 Antibody Screen NEGATIVE 12/21/21 Testing Electrocardiogram Date: 12/21/21 NSR at 72bpm. Chest X-Ray Date: 09/16/21 Stable anterior and inferior right glenohumeral dislocation with stable 1.5 cm avulsion fracture fragment from the coracoid process. No consolidation. No pleural effusion. No pneumothorax. Patient had reduction in ER. Reports current medical management. Stress Test Date: 02/21/18 Type: exercise Exercise stress ECHO/EKG negative for ischemia at 107% MPHR. 5.7 METS. LVEF 66%. Mild TR. Other Testing
--- NOTE | 2021-12-26 18:18 | History & Physical Report ---
Date of Service December 26, 2021 Assessment & Plan (1) Loosening of prosthesis of left total knee replacement: Plan: Treatment options discussed with the patient. He has obvious loosening of his patella. Tibia and femoral components appear to be well fixed. Patient will require revision surgery. Risks, benefits and alternatives to surgery including but not limited to infection, DVT, pain, stiffness, need for revision surgery, damage to blood vessels, damage to nerves, PE, , were discussed with the patient and they wish to proceed. Plan for left knee patella revision scheduled for December 27 at [facility] with Dr. Calero. We will plan on aspirin 81 mg twice daily for 1 month postop for DVT prophylaxis. We will plan on home health therapy. All questions answered. Follow-up postop. History of Present Illness Chief Complaint: Left knee pain Primary Care Provider: Chandler Douglas MD 81-year-old male with past medical history significant for hypertension, high cholesterol, GERD who presents with acute onset of left knee pain after suffering a fall in August. X-rays demonstrate patellar button loosening with displaced button. He would like to proceed with revision surgery. Patient denies headaches, sweats, fevers, chills, double vision, blurred vision, cough, sore throat, dysphagia, chest pain, sob, wheezing, n/v/d/c, numbness, tingling, fatigue, urinary symptoms, mood disorders. ROS positive for left knee pain and stiffness. Allergies Allergy/AdvReac Type Severity Reaction Status Date / Time Citizen Of The [place] food Allergy Anaphylaxis Uncoded 12/21/21 13:01 Home Medications Medication Instructions Recorded Confirmed Type cholecalciferol (vitamin D3) 125 5,000 unit PO QPM 06/12/18 10/23/18 History mcg (5,000 unit) tablet (Vitamin D3) coenzyme Q10 200 mg capsule 200 mg PO QPM 06/12/18 10/23/18 History cyanocobalamin (vitamin B-12) 2,500 mcg PO QPM 06/12/18 10/23/18 History 2,500 mcg tablet fluticasone propionate 50 2 spray intranasal QPM PRN 06/12/18 10/23/18 History mcg/actuation nasal allergies spray,suspension (Flonase Allergy Relief) lisinopril 10 mg tablet 10 mg PO HS 06/12/18 10/23/18 History lutein 25 mg-zeaxanthin 5 mg 1 tab PO QPM 06/12/18 10/23/18 History capsule rabeprazole 20 mg tablet,delayed 40 mg PO QPM 06/12/18 10/23/18 History release (AcipHex) rosuvastatin 5 mg tablet 5 mg PO HS 06/12/18 10/23/18 History epinephrine 0.3 mg/0.3 mL 0.3 mg IM DIRECTED PRN Allergic 10/23/18 10/23/18 History injection, auto-injector (EpiPen) Reaction eiyhhizvkan-asp-bjzykeqkl-vitC 1 cap PO QPM 10/23/18 10/23/18 History capsule (Glucosamine Complex-MSM) Past Med/Surg History Medical History Duodenal ulcer Hx GERD (gastroesophageal reflux disease) Hx of fall Fell down a flight of stairs (08/2021) > reduction in ER Hyperlipidemia Hypertension Kidney stones Lung abnormality Lung nodules Follows with Dr. Shaver ([facility]/[place]) Osteoarthritis Surgical History History of colonoscopy History of esophagogastroduodenoscopy (EGD) x2 History of tooth extraction Hx of cystoscopy Status post left knee replacement Left TKA (07/22/18): SAB x multiple attempts (see report for full details) + PNB at [facility] Social History Smoking Status: Former smoker Cigarettes Per Day: 90; Second Hand Exposure: No; Hx Alcohol Use: No Hx Substance Use: No Preferred Language: Tajik Communication Ability: Effective Bell Cleaner Required: No Beliefs That Will Affect Care: None marital status: Current Living Situation: Spouse Feels Safe at Home: Yes Assistive Devices: Denture - Lower and Glasses Review of Systems All systems reviewed & are unremarkable except as noted in HPI & below Physical Exam Constitutional: well developed and well nourished; no acute distress Eyes: PERRL, conjunctivae normal, anicteric sclerae ENMT: external ear and nose normal, oropharynx normal Neck: trachea midline, no thyromegaly Respiratory: normal respiratory effort, lungs clear to auscultation Cardiovascular: RRR, no murmur, no edema Musculoskeletal: Left knee: Well-healed surgical incisions. Stable valgus and varus stress test. Range of motion 0 120 degrees. Tenderness about the patella. Skin: no rashes, warm and dry Neurologic: patellar DTR's 2+ bilat, sensation intact Psychiatric: A+Ox3, euthymic affect Results & Data ([place]) Laboratory Results Inflammatory parameters negative for infection. Diagnostic Findings Left knee radiographs demonstrate a displaced patella polyethylene button with loosening. Tibial and femoral components are well fixed without evidence of loosening.
[~2021-12-27 07:55] MED LIST changes: +BUPIVACAINE 0.25% 30 ML VIAL ONE; +BUPIVACAINE 0.5 % 5 MG/1 ML PF 10ML VIAL ONE; -CEFAZOLIN 1000MG 1,000 MG/7.5 ML SYR IV SCH; +GABAPENTIN 300 MG CAP PO SCH; -GABAPENTIN 300 MG PO SCH; -ROPIVACAINE 0.5% HCL/PF 150 MG, BUPIVACAINE 0.5% MPF 30 ML, EPINEPHrine 30MG/30ML (OR U... INFIL SCH; +ROPIVACAINE 0.5% HCL/PF 150 MG, BUPIVACAINE 0.75% MPF 20 ML, EPINEPHrine 30MG/30ML (OR ... INFIL SCH; +TRANEXAMIC ACID 1,000 MG **IV Intra-op IV SCH; +VANCOMYCIN HCL 1,250 MG in SODIUM CHLORIDE 0.9% 250 ML IV SCH; +ceFAZolin 1000MG 1,000 MG/7.5 ML SYR IV SCH; +ceFAZolin 2000MG 2,000 MG/15 ML SYR IV SCH
[2021-12-27] MEDS ORDERED: MIDAZOLAM HCL 1 MG/ML 2ML VIAL ONE (09:08)
[2021-12-27] MEDS ORDERED: PROPOFOL IV EMULSION 10 MG/ML 20 ML VIAL IV ONE (09:09)
[2021-12-27] MEDS ORDERED: fentaNYL citrate 100 MCG/2 ML VIAL ONE ×2 (09:09→13:25)
[2021-12-27] MEDS ORDERED: ONDANSETRON INJ 2 MG/ML 2 ML VIAL IV PRN ×2 (10:03→15:31)
[2021-12-27] MEDS ORDERED: HYDROmorphone INJ 1 MG/ML SYRINGE IV PRN (10:03)
[2021-12-27] MEDS ORDERED: fentaNYL citrate 100 MCG/2 ML VIAL IV PRN (10:03)
[2021-12-27] MEDS ORDERED: ePHEDrine sulfate 50 MG/ML AMP IV PRN (10:03)
[2021-12-27] MEDS ORDERED: ATROPINE SULFATE 0.1 MG/ML 10ML SYR IV PRN (10:03)
--- NOTE | 2021-12-27 11:06 | History & Physical Bridge Note ---
Date of Service December 27, 2021 History & Physical Bridge Note I have examined the patient, reviewed the History & Physical and in the interval since the performance of the History & Physical I have noted the following changes of clinical significance: no changes noted
[2021-12-27] MEDS ORDERED: ROCURONIUM BROMIDE 10 MG/ML 5 ML VIAL IV ONE (11:32)
[2021-12-27] MEDS ORDERED: DEXAMETHASONE SOD INJ 4 MG/ML VIAL ONE (12:47)
[2021-12-27] MEDS ORDERED: ONDANSETRON INJ 2 MG/ML 2 ML VIAL ONE (12:47)
[2021-12-27] MEDS ORDERED: NEOSTIGMINE METHYLSULFATE 1 MG/ML 10ML VIAL ONE (12:48)
[2021-12-27] MEDS ORDERED: GLYCOPYRROLATE 0.2 MG/ML VIAL ONE (12:48)
[2021-12-27] MEDS ORDERED: ORTHO JOINT ANESTHETIC ONE (13:21)
--- NOTE | 2021-12-27 14:06 | Post Operative Brief Note ---
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 Calero) Anesthesia Type General Regional Complications none Disposition Disposition: Recovery Room Overlapping Procedure I was immediately available: during the entire case.
--- NOTE | 2021-12-27 14:27 | Operative Report ---
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 status post total knee replacement Post-Op Diagnosis: Left Knee posttraumatic aseptic mechanical loosening of patella component status post total knee replacement with evidence of minor osteolysis and moderate knee joint synovitis I identified the patient and participated in the time-out.: Yes Procedure Operation Date: 12/27/21 10:45 Actual Procedures p Left Knee revision of patella component of total knee replacement with electrocautery synovectomy and application of superficial wound VAC- Shawn Calero MD Surgeon Shawn Calero MD Compliance Tester Ovidio CASTELAN Estimated Blood Loss 5 Findings Consistent with Post-Op Diagnosis Specimens Synovium tissue and patella component Drains 2 Hemovac Anesthesia Type General Regional Complications none Disposition Disposition: Recovery Room Indications 81-year-old male status post a left total knee replacement who suffered a fall onto his knee started having some pain in his knee and had a radiograph demonstrating no fracture but suggested loosening of patella component which was verified by CAT scan and bone scan was only positive in the patella area with no evidence of infection or loosening of the femoral tibial components and serum inflammatory parameter lab tests were in normal range. Description of Procedure Patient was placed under general anesthetic. Patient placed supine on operating room table. Left knee exam demonstrated stable polyethylene post stable knee in extension and flexion was 0 through 130 degrees knee flexion. He did have a small to moderate effusion. There is no erythema no drainage. A pneumatic tourniquet was placed by his left upper thigh. His left lower extremity was sterilely prepped and draped with ChloraPrep. Patient received preop IV antibiotics. The left leg was elevated exsanguinated with an Esmarch bandage and a pneumatic tourniquet was raised to 300 mmHg. Prior anterior longitudinal incision was utilized for the incision. Skin incised sharply thin layer of fat was divided down to the fascia and elevated off the extensor mechanism which was intact. An incision was made through the medial retinaculum extending up into the mid third of the quadriceps tendon and down to the medial tibial tubercle. Intra-articular findings demonstrated the patella was obviously loose and displaced inferiorly but still was adjacent to the patella bone. There are some thickened synovium around the patella component and around the undersurface of the patella and thicker inflamed synovial tissue in the lateral gutter area. There was some moderate generalized synovitis in the knee. There was some loose cement pieces floating about the knee that were removed. There was no loosening of the femoral or tibial components and the tibial polyethylene looked normal. The removed patella polyethylene demonstrated normal pegs some cement on the back of the patella and there was some generalized pitting of the patella component but no major defects identified. On the undersurface of the patella where was cemented previously there was a few areas of cement that was still embedded within the patella and there were some areas of some osteolysis there that were superficial. Underlying those areas the bone was very solid. Used a caliper to measure the width and medially the patella width was 14 mm and laterally was 10. Electrocautery synovectomy was performed removing the thickened synovial tissue in the gutters Ardon patella pouch and along the lateral retinacular area and surrounding the patella. The scarred infrapatellar fat pad was resected. The surface was freshened up with a new cut trying to resect as minimal bone as possible to get a flat cut on patella with final patella with 12 mm medial to central region with 9 mm lateral. All cement from prior surgery was removed and all small areas of osteolysis were curetted out. The patella was sized for a 35 symmetrical patella. The drill hole guide was placed and 3 drill holes were made in similar position where the prior drill holes were. Patella was irrigated thoroughly and dried. Refobacin cement with gentamicin was used to cement the new patella component. [employer] journey symmetrical patella size 35 was cemented into position and held with a clamp till the cement cured. A Betadine soak was used for 3 minutes after there was complete curing of the cement. Knee was taken through range of motion and patella tracked completely centrally. The orthomix injection was performed into the subcutaneous tissues and into the tendon and synovial retinacular tissue. The knee was copiously irrigated with pulsed lavage saline solution. 2 Hemovac drains were placed and brought out laterally. Quadriceps tendon and medial retinaculum were closed with interrupted [id number] #1 Vicryl sutures. The subcutaneous tissues were closed up to 2-0 Vicryl sutures. Skin was closed with [place]. A superficial wound VAC was applied. Ovidio CASTELAN participated as first a ssistant and was integral part in all aspects of the procedure. He participated in positioning prepping, draping, soft tissue retraction, instrument management, wound closure, application of superficial wound VAC and will participate in the postoperative care of the patient. I attest to the content of the Intraoperative Record and any orders documented therein. Any exceptions are noted below.
--- NOTE | 2021-12-27 15:02 | XRay Report ---
TWO VIEWS LEFT KNEE CLINICAL HISTORY: Postoperative examination. FINDINGS: AP and crosstable lateral portable views of the left knee are obtained. A left knee arthrop lasty is in near anatomic alignment. There has been undersurface remodeling of the patella. No acute fracture is seen. There are expected postoperative changes around the knee including skin clips, a reyes rgical drain, soft tissue edema, and subcutaneous gas. IMPRESSION: Expected postoperative changes status post left knee arthroplasty. No acute fracture is s een. ACT 112: Negative or not required by law. Electronically signed by: Buster Manjarrez M.D. 12/27/2021 3:00 PM
[2021-12-27] MEDS ORDERED: HYDROmorphone INJ 0.5 MG/0.5 ML SYR IV PRN (15:31)
[2021-12-27] MEDS ORDERED: MAGNESIUM HYDROXIDE SUSP 30 ML UDC PO PRN (15:31)
[2021-12-27] MEDS ORDERED: FLUTICASONE PROPIONATE NA SPR 16 GM BTL PRN (15:31)
[2021-12-27] MEDS ORDERED: METOCLOPRAMIDE HCL INJ 5 MG/ML 2 ML VIAL IV PRN (15:31)
[2021-12-27] MEDS ORDERED: NALOXONE HCL 0.4 MG/1 ML VIAL/CARP IV PRN (15:31)
[2021-12-27] MEDS ORDERED: oxyCODONE HCL IR 5 MG TAB (IMMEDIATE RELEASE) PO PRN (15:31)
[2021-12-27] MEDS ORDERED: bisacodyL 10 MG SUPP PR PRN (15:31)
[2021-12-27] MEDS ORDERED: TAMSULOSIN HCL 0.4 MG CAP PO PRN (15:31)
[2021-12-27] MEDS: SODIUM CHLORIDE 0.9% 1000ML 1,000 ML IV SCH (15:50)
--- NOTE | 2021-12-27 16:28 | Anesthesiology Progress Note ---
Date of Service December 27, 2021 Anesthesia Post Procedure Vital Signs Vital Signs: Temp Pulse Pulse Resp BP Pulse Ox O2 Del Method 12/27/21 15:15 70 14 117/60 95 Room Air 12/27/21 15:05 75 22 113/73 94 Room Air 12/27/21 14:55 36.4 C L 69 16 115/68 95 Room Air 12/27/21 14:45 78 16 124/68 97 Room Air 12/27/21 14:35 73 16 123/68 99 Oxymask 12/27/21 14:25 80 17 128/76 99 Oxymask 12/27/21 14:15 87 15 134/85 98 Oxymask 12/27/21 14:09 36.1 C L 97 H 15 129/84 96 Oxymask 12/27/21 08:42 36.6 C 75 20 153/93 H 98 Room Air O2 Flow Rate 12/27/21 15:15 12/27/21 15:05 12/27/21 14:55 12/27/21 14:45 12/27/21 14:35 4 12/27/21 14:25 4 12/27/21 14:15 6 12/27/21 14:09 8 12/27/21 08:42 Pain Intensity Left Knee: Pain Intensity: 0 Transfer of Care Handoff Completed per policy Notes Mental Status: alert / awake / arousable and participated in evaluation Patient Amnestic to Procedure: Yes Nausea / Vomiting: adequately controlled Pain: adequately controlled Airway Patency, RR, SpO2: stable & adequate BP & HR: stable & adequate Hydration State: stable & adequate Anesthetic Complications: no major complications apparent and Pt Satisfied with anesthetic care
[2021-12-27] MEDS ORDERED: EPINEPHrine INJ 1 MG/ML AMP IM PRN (16:40)
--- NOTE | 2021-12-27 17:55 | Hospitalist Consultation ---
Date of Consultation December 27, 2021 Assessment & Plan (1) Loosening of prosthesis of left total knee replacement: - POD #0. EBL 5cc. Without complications. 2 Hemovac drains. - Pain/ABX/IVF/diet/drain management/transfusion needs/activity per primary team - Rescue Narcan ordered for over sedation PRN - VTE prophylaxis per primary service- SCDs in place - CBC and BMP in AM. * Renal fxn in November: Cr 1.29, GFR 52.4 * Hgb in October: 14.0 (2) Hypertension: - He is on lisinopril 10 mg at night. Would recommend holding-2 daily #2 to restart this, however if patient is currently extremely hypertensive tomorrow, POD #1, would be appropriate to restart it then pending no changes baseline r enal function on a.m. BMP. - Will order 5 mg PO amlodipine now for HTN while we hold the lisinopril - Will add on 5 mg IV hydralazine q6h as needed for breakthrough hypertension, SBP > 180 overnight. (3) Hyperlipidemia: - Continue rosuvastatin 5 mg at night. (4) GERD (gastroesophageal reflux disease): - Continue PPI; On rabeprazole, will switch to Protonix per hospital formulary. Supervising Physician Co-Signing Physician Notes Patient seen and examined, chart reviewed, case discussed with Alma Denson PA-C and I agree with the assessment and plan as above except as otherwise noted Mauricio is a 81-year-old male with a past medical history of hypertension, hyperlipidemia, GERD who presented for loosening of prosthesis of his left total knee s/p left knee patellar revision with Dr. Hubbard on 12/27/2021. We have been consulted for postop management of medical comorbidities. Patient is doing well postoperatively. Preop creatinine 1.29, estimated GFR 5060. Hemoglobin 14. Seen at bedside, no acute distress and feels well. Mucous membranes are moist, cap refill is brisk in the hallux bilaterally and PT pulse is intact to palpation bilaterally. intermittent mild tachycardia at bedside, regular on assessment. Left knee in postop wrap. No murmurs appreciated on auscultation Left knee revision: DVT prophylaxis, pain control, ambulation per primary team Hypertension: Hold lisinopril for 24-48 hours then resume. Minimal blood loss during procedure, MM moist, sinus tach. Last echo EF 65% with normal stress echo in 2018. May use amlodipine 5mg x1 while lisinopril is held and hydralazine 5mg IV q6H PRN for additional HTN >180. Encouraged PO. Hyperlipidemia: Continue statin GERD/ulcer prophylaxis: Continue PPI, converted to Protonix while inpatient may continue rabeprazole on discharge. Patient reports he has had poor therapeutic benefit from other PPIs in the past, may use Tums/maalox as needed. No sx at time of assessment. CKD: Preop creatinine 1.29 estimated GFR 5060. Trend BMP daily, renally dose medications as needed if GFR below 60. Lisinopril as noted. History of Present Illness Reason for Consultation: Postop medication management Requesting Physician: Shawn Calero MD Attending Physician: Shawn Calero MD History of Present Illness Mauricio Berry is a 81-year-old male with past medical history significant for hypertension, hyperlipidemia, GERD, and osteoarthritis s/p left TKA who was admitted today, 12/27 for a left knee revision after experiencing a fall in August with evidence of hardware loosening in his left knee. Hospitalist group was consulted for post-operative medication management. Today, he is POD#0 and feels well. Denies fever/chills, weakness, chest pain, palpitations, shortness of breath, cough, orthopnea, abdominal pain, nausea, vomiting. He is regaining sensation in his left leg, without any numbness or tingling. Family visit, he is resting in bed comfortably. Allergies Allergy/AdvReac Type Severity Reaction Status Date / Time Urdu food Allergy Anaphylaxis Uncoded 12/27/21 08:33 Home Medications Medication Instructions Recorded Confirmed Type cholecalciferol (vitamin D3) 125 5,000 unit PO QPM 06/12/18 12/27/21 History mcg (5,000 unit) tablet (Vitamin D3) coenzyme Q10 200 mg capsule 200 mg PO QPM 06/12/18 12/27/21 History cyanocobalamin (vitamin B-12) 2,500 mcg PO QPM 06/12/18 12/27/21 History 2,500 mcg tablet fluticasone propionate 50 2 spray intranasal QPM PRN 06/12/18 12/27/21 History mcg/actuation nasal allergies spray,suspension (Flonase Allergy Relief) lisinopril 10 mg tablet 10 mg PO HS 06/12/18 12/27/21 History lutein 25 mg-zeaxanthin 5 mg 1 tab PO QPM 06/12/18 12/27/21 History capsule rabeprazole 20 mg tablet,delayed 40 mg PO QPM 06/12/18 12/27/21 History release (AcipHex) rosuvastatin 5 mg tablet 5 mg PO HS 06/12/18 12/27/21 History epinephrine 0.3 mg/0.3 mL 0.3 mg IM DIRECTED PRN Allergic 10/23/18 12/27/21 History injection, auto-injector (EpiPen) Reaction [id number] 1 cap PO QPM 10/23/18 12/27/21 History capsule (Glucosamine Complex-MSM capsule) naproxen sodium 220 mg capsule 220 mg PO BID PRN Pain 12/27/21 12/27/21 History (Aleve) Patient History Medical History Duodenal ulcer Hx GERD (gastroesophageal reflux disease) Hx of fall Fell down a flight of stairs (08/2021) > reduction in ER Hyperlipidemia Hypertension Kidney stones Lung abnormality Lung nodules Follows with Dr. Shaver ([facility]/[place]) Osteoarthritis Surgical History History of colonoscopy History of esophagogastroduodenoscopy (EGD) x2 History of tooth extraction Hx of cystoscopy Status post left knee replacement Left TKA (07/22/18): SAB x multiple attempts (see report for full details) + PNB at [facility] Social History Smoking Status: Former smoker Cigarettes Per Day: 90; Smoking End Date: quit 1977; Second Hand Exposure: No; Do You Dip or Chew Tobacco: No; Tobacco Cessation Education Requested by Patient: No Hx Alcohol Use: No Hx Substance Use: No Preferred Language: Mozambican Communication Ability: Effective Doughnut Dough Mixer Required: No Beliefs That Will Affect Care: None marital status: Current Living Situation: Spouse Other Information That Helps Us Care for You: No Feels Safe at Home: Yes Safety Concerns: Feels Safe At This Time Assistive Devices: Denture - Lower and Glasses Assistive Devices Comment: lower-partial Review of Systems Review of Systems: Review of systems: Constitutional: No fever/chills, weakness, fatigue, myalgias, anorexia, night sweats Eyes: No diplopia, no worsening or blurred vision ENT: normal hearing, no trouble swallowing Respiratory: No cough, sputum, dyspnea at rest or on exertion Cardiovascular: No chest pain, tightness or palpitations Abdomen: No pain, nausea, vomiting, diarrhea or constipation : Denies dysuria, hematuria, increased urgency/frequency, urinary retention Musculoskeletal: No joint pain, calf pain, swelling Neurologic: No weakness, numbness/tingling, or balance problems Psychiatric: No anxiety or depression Skin: No rash or itch Physical Exam Physical Exam: General: awake, alert, no apparent distress Head: Normocephalic, atraumatic ENT: PERRL, EOMI, no pharyngeal exudate, mucous membranes moist Chest: Clear to auscultation, on room air, no adventitious breath sounds Cardiac: Regular rate and rhythm, no murmur, no JVD, normal peripheral pulses, good capillary refill Abdominal: NABS x 4 quadrants, soft, nontender to palpation, no rebound, guarding or tenderness Extremities: Normal inspection, no peripheral edema or erythema, calfs nontender to palpation Psych: Normal mood and affect Neuro: AAO x 3, strength intact bilaterally and rated 5/5, no motor deficits, speech is clear, no peripheral sensory deficits Skin: no rash or erythema Results & Data Results & Data ([facility]) Vital Signs (Past 12 Hours) Vital Signs Temp Pulse Pulse Resp BP Pulse Ox O2 Del Method 12/27/21 16:30 36.3 C L 76 16 116/69 93 Room Air 12/27/21 16:00 36.4 C L 82 16 131/78 97 Room Air 12/27/21 17:32 36.3 C L 98 H 16 173/94 H 98 Room Air 12/27/21 15:30 36.4 C L 92 H 16 137/73 95 Room Air 12/27/21 15:15 70 14 117/60 95 Room Air 12/27/21 15:05 75 22 113/73 94 Room Air 12/27/21 14:55 36.4 C L 69 16 115/68 95 Room Air 12/27/21 14:45 78 16 124/68 97 Room Air 12/27/21 14:35 73 16 123/68 99 Oxymask 12/27/21 14:25 80 17 128/76 99 Oxymask 12/27/21 14:15 87 15 134/85 98 Oxymask 12/27/21 14:09 36.1 C L 97 H 15 129/84 96 Oxymask 12/27/21 08:42 36.6 C 75 20 153/93 H 98 Room Air O2 Flow Rate 12/27/21 16:30 12/27/21 16:00 12/27/21 17:32 12/27/21 15:30 12/27/21 15:15 12/27/21 15:05 12/27/21 14:55 12/27/21 14:45 12/27/21 14:35 4 12/27/21 14:25 4 12/27/21 14:15 6 12/27/21 14:09 8 12/27/21 08:42 Diagnostic Findings Knee X-Ray 12/27/21 14:11 TWO VIEWS LEFT KNEE CLINICAL HISTORY: Postoperative examination. FINDINGS: AP and crosstable lateral portable views of the left knee are obtained. A left knee arthroplasty is in near anatomic alignment. There has been undersurface remodeling of the patella. No acute fracture is seen. There are expected postoperative changes around the knee including skin clips, a surgical drain, soft tissue edema, and subcutaneous gas. IMPRESSION: Expected postoperative changes status post left knee arthroplasty. No acute fracture is seen. ACT 112: Negative or not required by law. Electronically signed by: Buster Manjarrez M.D. 12/27/2021 3:00 PM PG Care Time/CCT Total # of Minutes Spent Total Time Spent with Patient: Total time spent is greater than 50% in coordination of care (as documented) at patient's floor/unit and/or counseling patient: Coding Level of Care Code 32926 Inpt Consult Level 2 Diagnoses Loosening of prosthesis of left total knee replacement T84.033A Hypertension I10 Hyperlipidemia E78.5 GERD (gastroesophageal reflux disease) K21.9
[2021-12-27] MEDS ORDERED: amLODIPine BESYLATE 5 MG TAB PO ONE (18:19)
[2021-12-27] MEDS ORDERED: hydrALAZINE HCL 20 MG/ML VIAL IV PRN (18:19)
[2021-12-27] MEDS ORDERED: CALCIUM CARBONATE 500 MG CHEWABLE TAB PO PRN (18:28)
[2021-12-27] MEDS ORDERED: ALUMINUM/MAGNESIUM SUSP 30 ML UDC PO PRN (18:28)
[2021-12-27] MEDS: ceFAZolin 2000MG 2,000 MG/15 ML SYR IV SCH (20:04)
[2021-12-27] MEDS: CeleBREX 200 MG CAP PO SCH (20:04)
[2021-12-27] MEDS: ASPIRIN 81 MG ECTAB PO SCH (20:04)
[2021-12-27] MEDS: DOCUSATE SODIUM 100 MG CAP PO SCH (20:05)
[2021-12-27] MEDS ORDERED: ROSUVASTATIN CALCIUM 5 MG TAB PO SCH (21:00)
[2021-12-27] MEDS ORDERED: PANTOprazole 40 MG TAB PO SCH (21:00)
[2021-12-27] MEDS ORDERED: LUTEIN ZEAXANTHIN PO SCH (21:00)
[2021-12-27] MEDS ORDERED: SENNA 8.6 MG TAB PO SCH (21:00)
[2021-12-27] MEDS ORDERED: lisinopril 10 MG TAB PO SCH (21:00)
[2021-12-27] MEDS ORDERED: GLUCOSAMINE MSM MAGNESIUM VITC PO SCH (21:00)
[2021-12-27] MEDS ORDERED: CHOLECALCIFEROL 5,000 UNITS 125 MCG TAB PO SCH (21:00)
[2021-12-27] MEDS ORDERED: CYANOCOBALAMIN (B-12) 2,500 MCG TABLET SL SCH (21:00)
[2021-12-27] MEDS: ACETAMINOPHEN 500 MG TAB PO SCH (21:38)
[2021-12-28] MEDS: SODIUM CHLORIDE 0.9% 1000ML 1,000 ML IV SCH (01:07)
[2021-12-28] MEDS: ceFAZolin 2000MG 2,000 MG/15 ML SYR IV SCH (03:23)
[2021-12-28] MEDS: ACETAMINOPHEN 500 MG TAB PO SCH (05:33)
[2021-12-28] MEDS ORDERED: VANCOMYCIN HCL 1,250 MG in SODIUM CHLORIDE 0.9% 250 ML IV SCH (06:00)
[2021-12-28 06:54] LABS: Hematocrit (blood only) 34.9 % (40.1-51.0); Hemoglobin 12.2 g/dl (14.0-18.0); Mean Corpuscular Hemoglobin 31.7 pg (25.0-34.0); Mean Corpuscular Volume 90.6 fL (80.0-100.0); Mean Platelet Volume 10.8 fL (9.4-12.4); Platelet Count 214 K/uL (130-400); RDW Coefficient of Variation 12.9 % (11.5-14.5); RDW Standard Deviation 42.4 fL (36.4-46.3); Red Blood Count 3.85 M/uL (4.63-6.08); White Blood Count 17.38 K/ul (4.8-10.8)
[2021-12-28 07:20] LABS: BUN Creatinine Ratio 18.6 (10-20); Calcium 8.2 mg/dl (8.5-10.1); Creatinine Clr Calc Pharmacy 51.3 ml/min; Est GFR (African American) 71.3 ml/min; Est GFR (Non-African American) 61.5 ml/min; Potassium 4.3 mmol/L (3.5-5.1)
[2021-12-28] MEDS: DOCUSATE SODIUM 100 MG CAP PO SCH (08:22)
[2021-12-28] MEDS: CeleBREX 200 MG CAP PO SCH (08:22)
[2021-12-28] MEDS: ASPIRIN 81 MG ECTAB PO SCH (08:22)
[2021-12-28] MEDS ORDERED: MULTIVITAMIN TAB PO SCH (09:00)
--- NOTE | 2021-12-28 09:55 | Orthopedic Progress Note ---
Date of Service December 28, 2021 Assessment & Plan (1) Loosening of prosthesis of left total knee replacement: Plan: Postop day 1 status post revision left patellar component. PT/OT protocols. Weightbearing as tolerated. DVT prophylaxis-aspirin p.o. twice daily, SCDs, LEAH bowden Pain management as written. DC planning-patient is planning for home health services upon discharge. For discharge to home today. Admission and Anticipated Discharge Date Admission Date: December 27, 2021 Subjective Postop day 1 Patient sitting in his chair at the bedside. No complaints this morning. Pain is controlled. Denies shortness of breath, chest pain, lightheadedness. Physical Exam Physical Exam: Dressings are clean, dry, and intact. Calves are soft nontender. Neurovascular intact. Toes are mobile. He has good dorsiflexion and plantarflexion of the left foot. Results & Data ([facility]) Vital Signs (Past 12 Hours) Vital Signs Temp Pulse Resp BP Pulse Ox O2 Del Method 12/28/21 07:44 36.5 C 87 16 166/84 H 96 Room Air 12/28/21 04:09 36.4 C L 92 H 16 140/79 95 Room Air 12/27/21 23:44 36.5 C 98 H 17 121/69 98 Room Air Laboratory Results Laboratory Results WBC 17.38 K/ul (4.8-10.8) H 12/28/21 06:40 RBC 3.85 M/uL (4.63-6.08) L 12/28/21 06:40 Hgb 12.2 g/dl (14.0-18.0) L 12/28/21 06:40 Hct 34.9 % (40.1-51.0) L 12/28/21 06:40 MCV 90.6 fL (80.0-100.0) 12/28/21 06:40 MCH 31.7 pg (25.0-34.0) 12/28/21 06:40 MCHC 35.0 g/dL (32.0-36.0) 12/28/21 06:40 RDW Std Deviation 42.4 fL (36.4-46.3) 12/28/21 06:40 RDW Coeff of Tiara 12.9 % (11.5-14.5) 12/28/21 06:40 Plt Count 214 K/uL (130-400) 12/28/21 06:40 MPV 10.8 fL (9.4-12.4) 12/28/21 06:40 Sodium 136 mmol/L (136-145) 12/28/21 06:40 Potassium 4.3 mmol/L (3.5-5.1) 12/28/21 06:40 Chloride 106 mmol/L (98-107) 12/28/21 06:40 Carbon Dioxide 20 mmol/L (21-32) L 12/28/21 06:40 Anion Gap 10 (3-11) 12/28/21 06:40 BUN 21 mg/dl (6-23) 12/28/21 06:40 Creatinine 1.13 mg/dl (0.6-1.4) 12/28/21 06:40 Est Cr Clr Drug Dosing 51.3 ml/min 12/28/21 06:40 Est GFR ( Amer) 71.3 ml/min 12/28/21 06:40 Est GFR (Non-Af Amer) 61.5 ml/min 12/28/21 06:40 BUN/Creatinine Ratio 18.6 (10-20) 12/28/21 06:40 Glucose 173 mg/dl (70-99(Fasting)) H 12/28/21 06:40 Calcium 8.2 mg/dl (8.5-10.1) L 12/28/21 06:40 SARS-CoV-2, RNA, NAAT NEGATIVE (NEGATIVE) 12/27/21 Unknown Impressions Knee X-Ray 12/27/21 14:11 TWO VIEWS LEFT KNEE CLINICAL HISTORY: Postoperative examination. FINDINGS: AP and crosstable lateral portable views of the left knee are obtained. A left knee arthroplasty is in near anatomic alignment. There has been undersurface remodeling of the patella. No acute fracture is seen. There are expected postoperative changes around the knee including skin clips, a surgical drain, soft tissue edema, and subcutaneous gas. IMPRESSION: Expected postoperative changes status post left knee arthroplasty. No acute fracture is seen. ACT 112: Negative or not required by law. Electronically signed by: Buster Manjarrez M.D. 12/27/2021 3:00 PM
--- NOTE | 2021-12-28 15:58 | Hospitalist Progress Note ---
Date of Service December 28, 2021 Assessment & Plan (1) Loosening of prosthesis of left total knee replacement: Plan: - POD #1. Hemovac has been removed - Pain/ABX/IVF/diet/drain management/transfusion needs/activity per primary team - Rescue Narcan ordered for over sedation PRN - VTE prophylaxis per primary service- SCDs in place - CBC and BMP in AM. * Renal fxn in November: Cr 1.29, GFR 52.4 * Hgb in October: 14.0 (2) Hypertension: Plan: - He is on lisinopril 10 mg at night. Would recommend holding-2 daily #2 to restart this, however if patient is currently extremely hypertensive tomorrow, POD #1, would be appropriate to restart it then pending no changes baseline renal function on a.m. BMP. - Will order 5 mg PO amlodipine now for HTN while we hold the lisinopril - Will add on 5 mg IV hydralazine q6h as needed for breakthrough hypertension, SBP > 180 overnight. (3) Hyperlipidemia: Plan: - Continue rosuvastatin 5 mg at night. (4) GERD (gastroesophageal reflux disease): Plan: - Continue PPI; On rabeprazole, will switch to Protonix per hospital formulary. Admission and Anticipated Discharge Date Admission Date: December 27, 2021 Subjective patient seen and examined, sitting up in the chair Review of Systems Review of Systems: All systems reviewed are negative, apart from the ones contained in the history. Physical Exam Physical Exam: The patient is awake, alert and oriented 3, well developed and well nourished, normocephalic and atraumatic, lying in bed and in no acute distress. HEENT--PERRL, EOMI, mucous membranes and oropharynx mildly dry Neck--supple. No JVD. No bruits. Thyroid normal, trachea midline, no adenopathy. Heart--normal S1 and S2. No murmurs, rubs or gallops. Lungs--clear bilaterally, no respiratory distress, no accessory muscle use. Abdomen--normal bowel sounds and soft. Mild epigastric and left sided abdominal pain Extremities--no cyanosis or clubbing. No edema. Dermatologic--normal skin turgor, normal color, no abnormal lymph nodes, no rash. Neurologic--cranial nerves II through XII grossly intact. Rheumatologic--normal range of motion. Psychiatric--normal affect. Results & Data Results & Data ([facility]) Vital Signs (Past 12 Hours) Vital Signs Temp Pulse Pulse Resp BP Pulse Ox O2 Del Method 12/28/21 12:42 97.5 F L 89 16 150/75 H 92 Room Air 12/28/21 10:52 97.7 F 70 87 16 166/84 H 96 12/28/21 07:44 97.7 F 87 16 166/84 H 96 Room Air 12/28/21 04:09 97.5 F L 92 H 16 140/79 95 Room Air PG Care Time/CCT Total # of Minutes Spent Total Time Spent with Patient: Total time spent is greater than 50% in coordination of care (as documented) at patient's floor/unit and/or counseling patient: Coding Level of Care Code 36592 Subseq Hosp Care Lvl 2 Diagnoses Loosening of prosthesis of left total knee replacement T84.033A Hypertension I10 Hyperlipidemia E78.5 GERD (gastroesophageal reflux disease) K21.9 Time Spent (min) 35
[2021-12-28] MEDS ORDERED: lisinopril 10 MG TAB PO SCH (21:00)
--- NOTE | 2021-12-28 22:31 | Discharge Summary ---
Date of Service December 28, 2021 Admission HPI Per Admitting Provider 81-year-old male with past medical history significant for hypertension, high cholesterol, GERD who presents with acute onset of left knee pain after suffering a fall in August. X-rays demonstrate patellar button loosening with displaced button. He would like to proceed with revision surgery. Patient denies headaches, sweats, fevers, chills, double vision, blurred vision, cough, sore throat, dysphagia, chest pain, sob, wheezing, n/v/d/c, numbness, tingling, fatigue, urinary symptoms, mood disorders. ROS positive for left knee pain and stiffness. Admission Exam Per Admitting Provider Constitutional: well developed and well nourished; no acute distress Eyes: PERRL, conjunctivae normal, anicteric sclerae ENMT: external ear and nose normal, oropharynx normal Neck: trachea midline, no thyromegaly Respiratory: normal respiratory effort, lungs clear to auscultation Cardiovascular: RRR, no murmur, no edema Musculoskeletal: Left knee: Well-healed surgical incisions. Stable valgus and varus stress test. Range of motion 0 120 degrees. Tenderness about the patella. Skin: no rashes, warm and dry Neurologic: patellar DTR's 2+ bilat, sensation intact Psychiatric: A+Ox3, euthymic affect Principal Diagnosis left knee patellar loosening Discharge Exam Dressings are clean, dry, and intact. Calves are soft nontender. Neurovascular intact. Toes are mobile. He has good dorsiflexion and plantarflexion of the left foot. Constitutional well developed and well nourished; no acute distress Discharge Data Allergies Allergy/AdvReac Type Severity Reaction Status Date / Time Azeri food Allergy Anaphylaxis Uncoded 12/27/21 08:33 Consultations 12/24/21 16:11 Consult Hospitalist Routine Procedures Performed Operation Date: 12/27/21 10:45 Actual Procedures p Left Knee Patellar Revision(Left) - Shawn Calero MD Ordered Studies 12/27/21 05:00 US - OR guided needle placemen Routine Hospital Course (1) Loosening of prosthesis of left total knee replacement: Postop day 1 status post revision left patellar component. PT/OT protocols. Weightbearing as tolerated. DVT prophylaxis-aspirin p.o. twice daily, SCDs, LEAH hose Pain management as written. DC planning-patient is planning for home health services upon discharge. For discharge to home today. Lab Results 12/27/21 12/28/21 12/28/21 Range/Units Unknown 06:40 06:40 WBC 17.38 H (4.8-10.8) K/ul RBC 3.85 L (4.63-6.08) M/uL Hgb 12.2 L (14.0-18.0) g/dl Hct 34.9 L (40.1-51.0) % MCV 90.6 (80.0-100.0) fL MCH 31.7 (25.0-34.0) pg MCHC 35.0 (32.0-36.0) g/dL RDW Std Deviation 42.4 (36.4-46.3) fL RDW Coeff of [place]ara 12.9 (11.5-14.5) % Plt Count 214 (130-400) K/uL MPV 10.8 (9.4-12.4) fL Sodium 136 (136-145) mmol/L Potassium 4.3 (3.5-5.1) mmol/L Chloride 106 (98-107) mmol/L Carbon Dioxide 20 L (21-32) mmol/L Anion Gap 10 (3-11) BUN 21 (6-23) mg/dl Creatinine 1.13 (0.6-1.4) mg/dl Est Cr Clr Drug Dosing 51.3 ml/min Est GFR ( Amer) 71.3 ml/min Est GFR (Non-Af Amer) 61.5 ml/min BUN/Creatinine Ratio 18.6 (10-20) Glucose 173 H (70-99(Fasting)) mg/dl Calcium 8.2 L (8.5-10.1) mg/dl SARS-CoV-2, RNA, NAAT NEGATIVE (NEGATIVE) Total Time Total Time Spent Total Time Spent (In Minutes): 20 Discharge Plan Discharge Items Patient Disposition: Home - Home Health Services Reason For Visit: Left Knee Mechanical Loosening Patella Mass Discharge Diagnosis: Left patellar mechanical loosening Activity: Per Instructions section Weightbearing: Left weightbearing Weightbearing Comment: as tolerated with walker Non-emergency contact: Surgeon Call non-emergency contact if: you have any medication questions, your pain is not controlled, your temperature is above 101.5, your wound has increased redness and your wound has increased drainage Follow-up/Referrals: Shawn Calero MD [Primary Care Provider] - (Follow up in 2 weeks from the day of your surgery for your first post operative visit) Diet: Regular Addtl Attending Provider Instructions: ACTIVITY RECOMMENDATIONS: SELF CARE INSTRUCTIONS AFTER TOTAL KNEE REPLACEMENT A. You may need to continue a physical therapy program after discharge from the hospital. There are several options available to you. Your doctor will assist you in selecting the best one for you. 1. An out-patient facility 2 to 3 times a week for therapy or home therapy. 2. Continue working on all exercises taught to you in the hospital. Your goals should be to increase bending of your knee to 90 degrees and beyond and to fully straighten your knee. B. You may progress at your own pace from walking with a walker or crutches to a cane; then to no assistive devices. C. Make walking a part of your daily routine. Be up as much as comfortable with rest periods throughout the day. Rest with leg elevation is very important. Use the ice wrap frequently for the first 3-4 weeks. D. There are no restrictions on activities. You may ride in a car, shop, participate in president and chief executive officer and all social activities. E. Wear the long elastic stockings (LEAH hose) 20 hours a day for 2 weeks after surgery. They can be removed several times a day for laundering and for a bath. F. You may shower, no tub baths until cleared by your doctor. SPECIAL CARE INSTRUCTIONS: VERY IMPORTANT TO READ AND REVIEW A. There are a few signs you need to watch for after you are home. Call [facility] [place] if you notice any of the followin. Increased severe knee pain. Some pain is expected especially when you exercise. 2. Increased swelling in your leg or knee; pain or swelling of the calf muscle in either lower leg. 3. Any fluid drainage from the incision. 4. Shortness of breath or chest pain. B. Please call [facility] at if you have any concerns or questions about your operation or recovery. The doctor or his nurse will return your call promptly. C. You must take antibiotics before dental work, bladder, bowel or other surgery. Your doctor will provide you with a permanent care to carry describing this precaution. IMPORTANT: * REMEMBER TO TAKE ASPIRIN, 81 MG, TWICE DAILY FOR 4 WEEKS UNLESS OTHERWISE DIRECTED. THIS IS YOUR BLOOD THINNER. * HIGH RISK PATIENTS MAY BE PRESCRIBED A STRONGER BLOOD THINNER. THIS WILL BE PROVIDED AT DISCHARGE. * CALL IF INCREASED PAIN, REDNESS, DRAINAGE OR FEVER GREATER THAT 101. * WEAR LEAH HOSE 20 HOURS PER DAY FOR 2 WEEKS. * CAMERON Dressing - This is a large suction dressing covering your incision. This will help pull any excess drainage from the wound and allow your incision to heal properly. You may shower with this if you can keep the unit outside of the shower. If any bleeding or leakage is noted please call your doctor's office. This will remain on your incision for 7 days and then should be removed. This can be done yourself or by the home nursing staff if applicable. The entire unit is disposable once removed. Once removed, keep incision clean and dry. If redness or drainage is noted, please call your surgeon. . FOLLOW UP VISIT: If appointment is not already scheduled: Please call [facility] [place] [facility] to make a follow-up appointment for 2 weeks after your surgery at . Stand-Alone Forms: My [facility] Head Held High, Opioid Pain Management, Smoking Cessation Medications and DC Order Prescriptions: New aspirin 81 mg Tablet,Delayed Release (Dr/Ec) 81 mg PO BID 30 Days Qty: 60 0RF acetaminophen [Tylenol Extra Strength] 500 mg Tablet 1,000 mg PO Q8 14 Days Qty: 84 0RF polyethylene glycol 3350 [Miralax] 17 gram powder in packet 17 g PO DAILY PRN (Reason: constipation) Qty: 5 0RF cefadroxil 500 mg capsule 500 mg PO BID Qty: 14 0RF oxycodone 5 mg tablet 5 mg PO Q4H MDD 6 PRN (Reason: pain) Qty: 30 0RF Continued epinephrine [EpiPen] 0.3 mg/0.3 mL Auto-Injector 0.3 mg IM DIRECTED PRN (Reason: Allergic Reaction) Glucosamine Complex-MSM Capsule 1 cap PO QPM rabeprazole [AcipHex] 20 mg Tablet,Delayed Release (Dr/Ec) 40 mg PO QPM Rx Instructions: after dinner rosuvastatin 5 mg Tablet 5 mg PO HS lisinopril 10 mg Tablet 10 mg PO HS fluticasone propionate [Flonase Allergy Relief] 50 mcg/actuation [place],Suspension 2 spray INTRANASAL QPM PRN (Reason: allergies) coenzyme Q10 200 mg Capsule 200 mg PO QPM cholecalciferol (vitamin D3) [Vitamin D3] 5,000 unit Tablet 5,000 unit PO QPM lutein-zeaxanthin 25-5 mg Capsule 1 tab PO QPM cyanocobalamin (vitamin B-12) 2,500 mcg Tablet 2,500 mcg PO QPM Discontinued naproxen sodium [Aleve] 220 mg Capsule 220 mg PO BID PRN (Reason: Pain) Discharge Orders: Discharge Order (Routine); Ordered 12/28/21 Ordered By: Toby Cast/Other Patient Handouts: DVT Post Op Prevention, ED Sneha Peacock Admission Data Admit Date/Time: 12/27/21 14:11 Attending Provider: Phani Middleton Admit Provider: Shawn Calero Primary Care Provider: Shawn Calero Other Providers: Ihsan Schneider ; [facility] Other Interventions: Discharge Summary Assessment (RN) Last Done: 12/28/21 10:52
== END 2021-12-28 13:02 | disposition home health service (06) | DRG 468 ==
LOC: 3E 07:55 → ASU 07:55 → SUATTDRO 14:11 → OBSVTOIN 14:11

== ENCOUNTER 2025-02-16 07:54 | Observation (INO) ==
--- NOTE | 2025-01-27 13:28 | PAT Medication Instructions ---
Medication Instructions Date of Service January 27, 2025 Home Medications cholecalciferol (vitamin D3) 125 mcg (5,000 unit) tablet (Vitamin D3) 4,000 unit PO HS coenzyme Q10 200 mg capsule 200 mg PO HS cyanocobalamin (vitamin B-12) 2,500 mcg tablet 2,500 mcg PO HS lutein 25 mg-zeaxanthin 5 mg capsule 1 tab PO HS rabeprazole 20 mg tablet,delayed release (AcipHex) 40 mg PO QDD rosuvastatin 5 mg tablet 5 mg PO HS epinephrine 0.3 mg/0.3 mL injection, auto-injector (EpiPen) 0.3 mg IM DIRECTED PRN hx allergic rxn to colombian food [id number]-[id number]-vitC capsule (Glucosamine Complex-MSM capsule) 1 cap PO HS lisinopril 20 mg tablet 10 mg PO HS acetaminophen 500 mg tablet (Tylenol Extra Strength) 500 mg PO UD PRN Pain magnesium 200 mg tablet 400 mg PO HS Continue as directed epinephrine 0.3 mg/0.3 mL injection, auto-injector (EpiPen) 0.3 mg IM DIRECTED PRN hx allergic rxn to colombian food (if needed) STOP taking 2 weeks before surgery (or as soon as possible) coenzyme Q10 200 mg capsule 200 mg PO HS lutein 25 mg-zeaxanthin 5 mg capsule 1 tab PO HS [id number]-[id number]-vitC capsule (Glucosamine Complex-MSM capsule) 1 cap PO HS Take morning of surgery With a small sip of water, OTHERWISE NOTHING TO EAT OR DRINK AFTER MIDNIGHT acetaminophen 500 mg tablet (Tylenol Extra Strength) 500 mg PO UD PRN Pain (if needed) Take evening before surgery cholecalciferol (vitamin D3) 125 mcg (5,000 unit) tablet (Vitamin D3) 4,000 unit PO HS cyanocobalamin (vitamin B-12) 2,500 mcg tablet 2,500 mcg PO HS rosuvastatin 5 mg tablet 5 mg PO HS rabeprazole 20 mg tablet,delayed release (AcipHex) 40 mg PO QDD lisinopril 20 mg tablet 10 mg PO HS acetaminophen 500 mg tablet (Tylenol Extra Strength) 500 mg PO UD PRN Pain (if needed) magnesium 200 mg tablet 400 mg PO HS Other Notes If you have any questions please call us at [phone] or [phone] or [phone] or [phone]
--- NOTE | 2025-02-02 13:55 | Anesthesiology Consultation ---
Date of Service February 02, 2025 Assessment & Plan (1) Encounter for pre-operative examination: - Infectious disease screening: Per assessment on 02/02/25- No known recent infectious disease contacts or current infectious disease symptoms. - Outpatient joint assessment: Pt currently scheduled for inpatient pathway. If surgeon requests review for outpatient joint pathway, patient is not a recommended candidate for outpatient joint program from anesthesia standpoint based on available information. - S/P Left TKA (07/22/18): SAB x multiple attempts (see report for full details) + PNB at [facility] - Acceptable risk for surgery pending surgeon-ordered PCP preop evaluation ([facility], appt 02/11). Chart Review Chart Review: Patient seen in Pre Admission Testing Teaching & Discussion Pre-Anesthesia Teaching/Discussion Notes: Instructed NPO after midnight before surgery,except medications with 15 cc of water. Medication instructions provided according to the PAT guidelines. History Surgery Operation Date: 02/16/25 10:30 Proposed Procedures p Right Total Knee Arthroplasty - Shawn Calero MD Height/Weight Height: 5 ft 8 in Weight: 82.5 kg Allergies Allergy/AdvReac Type Severity Reaction Status Date / Time citizen of [place] food Allergy Unknown See notes Uncoded 01/26/25 16:22 Medications Home Medications Medication Instructions Recorded Confirmed Last Taken cholecalciferol (vitamin D3) 125 4,000 unit PO HS 06/12/18 01/26/25 12/13/21 mcg (5,000 unit) tablet (Vitamin D3) coenzyme Q10 200 mg capsule 200 mg PO HS 06/12/18 01/26/25 12/13/21 cyanocobalamin (vitamin B-12) 2,500 mcg PO HS 06/12/18 01/26/25 12/13/21 2,500 mcg tablet lutein 25 mg-zeaxanthin 5 mg 1 tab PO HS 06/12/18 01/26/25 12/13/21 capsule rabeprazole 20 mg tablet,delayed 40 mg PO QDD 06/12/18 01/26/25 12/26/21 18:30 release (AcipHex) rosuvastatin 5 mg tablet 5 mg PO HS 06/12/18 01/26/25 12/26/21 22:00 epinephrine 0.3 mg/0.3 mL 0.3 mg IM DIRECTED PRN hx 10/23/18 01/26/25 Unknown injection, auto-injector (EpiPen) allergic rxn to citizen [place] food xwtnnftmtsz-zpx-jlujshzbx-vitC 1 cap PO HS 10/23/18 01/26/25 12/13/21 capsule (Glucosamine Complex-MSM capsule) lisinopril 20 mg tablet 10 mg PO HS 04/07/23 01/26/25 Unknown acetaminophen 500 mg tablet 500 mg PO UD PRN Pain 01/26/25 01/26/25 Unknown (Tylenol Extra Strength) magnesium 200 mg tablet 400 mg PO HS 01/26/25 01/26/25 Unknown Past Medical History Medical History (Updated 02/03/25 @ 08:31 by Dari Bradford) Atypical chest pain Noted per [facility] records review, [facility] ER visit 2018 "Resolved atypical chest pain/tightness and shortness of breath from susp ected GERD vs esophagitis. Chest tightness and shortness of breath exacerbated by supine position. Seen by GI-outpatient EGD and colonoscopy recommended. Continue with PPI twice daily. Acute coronary syndrome ruled out by negative enzymes, EKG and inpatient cardiac stress echocardiogram." No noted recent/current issues. Gallstones Most recent flare 2021 (a few days following knee surgery) GERD (gastroesophageal reflux disease) History of colon polyps History of gastric ulcer History of kidney stones History of skin cancer Forehead, removed Hx of fall Fell down a flight of stairs (08/2021) > shoulder reduction in ER Hyperlipidemia Hypertension Osteoarthritis Pulmonary nodule Under surveillance Most recent Chest CT 11/2024, [place] [facility] Plan for continued surveillance as of current- patient to discuss if further needed with pulmonary Shoulder problem Hx torn tendons, right shoulder No hx surgery Exercise / Class Metabolic Activity II 4-5 Yardwork/Stairs/Walk up hill Past Surgical History Surgical History History of colonoscopy History of esophagogastroduodenoscopy (EGD) x2 History of revision of total knee arthroplasty Left knee patellar revision: Grade 3 view, Gutiérrez#2, ETT 7.5 at [facility] (12/27/21) History of tooth extraction Hx of cystoscopy Status post left knee replacement Left TKA (07/22/18): SAB x multiple attempts (see report for full details) + PNB at [facility] Past Anesthesia History No Hx of Anesthesia Complications and No Family Hx of Anesthesia Complications History of PONV No Hx of PONV and No Hx of Motion Sickness Social History Smoking Status: Former smoker tobacco type: cigarettes Do You Dip or Chew Tobacco: No Smoking End Date: 1977 Hx Alcohol Use: No (alcohol since 1977) Hx Substance Use: No substance use type: does not use Review of Systems Patient denies chest pain, shortness of breath, dyspnea on exertion, fever, chills, cough, wheezing. Physical Exam Vital Signs BP 133/78 P 67 TEMP 97.6 SP02 96%RA RESP 16 Physical Decreased cervical extension range of motion. Full TMJ range of motion. TMD > 3.5 finger breaths Mallampati Score III Dentition: lower partial Lungs: clear throughout to auscultation Cardiac: regular rate and rhythm, no murmurs noted Spine: normal Carotid arteries: negative bruit Extremities: no LE edema Lab Results Anesthesia Preop Results Results Anesthesia Widget: WBC 7.17 K/ul (4.8-10.8) 02/02/25 Hgb 13.1 g/dl (14.0-18.0) L 02/02/25 Hct 38.8 % (42.0-52.0) L 02/02/25 Plt 224 K/uL (130-400) 02/02/25 Na 135 mmol/L (136-145) L 02/02/25 K 4.1 mmol/L (3.5-5.1) 02/02/25 Cl 104 mmol/L (98-107) 02/02/25 CO2 25 mmol/L (21-32) 02/02/25 BUN 19 mg/dl (6-23) 02/02/25 Creat 1.11 mg/dl (0.6-1.4) 02/02/25 Glucose Level 88 mg/dl (70-99(Fasting)) 02/02/25 PT 10.6 Seconds (9.0-12.0) 02/02/25 PTT 27 Seconds (21-31) 02/02/25 INR 1.0 (0.9-1.1) 02/02/25 Urine Color Yellow 02/02/25 Urine Appearance Clear (Clear) 02/02/25 Urine pH 6.5 (4.5-7.5) 02/02/25 Urine Specific [place] 1.020 (1.000-1.030) 02/02/25 Urine Protein Negative (Negative) 02/02/25 Urine Glucose (UA) Negative (Negative) 02/02/25 Urine Ketones Negative (Negative) 02/02/25 Urine Blood Negative (Negative) 02/02/25 Urine Nitrite Negative (Negative) 02/02/25 Urine Bilirubin Negative (Negative) 02/02/25 Urine Urobilinogen Negative (Negative) 02/02/25 Urine Leukocyte Esterase Negative (Negative) 02/02/25 Blood Type A Positive 02/02/25 Antibody Screen NEGATIVE 02/02/25 Testing Electrocardiogram Date: 02/02/25 NSR at 76bpm. "Normal ECG" Other Testing Chest CT Date: 12/08/24 Indication: Pulmonary nodule f/u IMPRESSION: 1. Mild emphysema. 2. A 12 mm groundglass lesion at the right apex with a 5 mm more solid nodular component has not significantly changed from 10/13/2023 but has modestly increased in size dating back to 2019. This remains suspicious for low-grade adenomatous neoplasm. At a minimum, continued attention at follow-up will be required. 3. Additional subcentimeter pulmonary nodules are similar to previous. 4. There is no airspace consolidation typical for pneumonia or pleural effusion. 5. Advanced coronary artery atherosclerosis. 6. Cholelithiasis.
--- NOTE | 2025-02-14 17:40 | History & Physical Report ---
Date of Service February 14, 2025 Assessment & Plan (1) Osteoarthritis of right knee: Plan: End-stage right knee osteoarthritis failed conservative management. Patient has history of left knee replacement after which he had a fall and some patellar loosening that had to be addressed but that condition was corrected and he is satisfied with outcome on the left knee and wants to proceed with a right knee replacement at this time. Osteoarthritis type: primary Qualified Code(s): M17.11 - Unilateral primary osteoarthritis, right knee History of Present Illness Chief Complaint: Right knee pain. Primary Care Provider: Chandler Douglas MD 84-year-old male with ongoing right knee pain failed conservative management. History of left knee replacement in the past. Patient denies headaches, sweats, fevers, chills, double vision, blurred vision, cough, sore throat, dysphagia, chest pain, sob, wheezing, n/v/d/c, numbness, tingling, fatigue, urinary symptoms, mood disorder. Review of system positive for GERD peptic ulcer disease acid reflux issues. Allergies Allergy/AdvReac Type Severity Reaction Status Date / Time niuean food Allergy Unknown See notes Uncoded 01/26/25 16:22 Home Medications Medication Instructions Recorded Confirmed Type cholecalciferol (vitamin D3) 125 4,000 unit PO HS 06/12/18 01/26/25 History mcg (5,000 unit) tablet (Vitamin D3) coenzyme Q10 200 mg capsule 200 mg PO HS 06/12/18 01/26/25 History cyanocobalamin (vitamin B-12) 2,500 mcg PO HS 06/12/18 01/26/25 History 2,500 mcg tablet lutein 25 mg-zeaxanthin 5 mg 1 tab PO HS 06/12/18 01/26/25 History capsule rabeprazole 20 mg tablet,delayed 40 mg PO QDD 06/12/18 01/26/25 History release (AcipHex) rosuvastatin 5 mg tablet 5 mg PO HS 06/12/18 01/26/25 History epinephrine 0.3 mg/0.3 mL 0.3 mg IM DIRECTED PRN hx 10/23/18 01/26/25 History injection, auto-injector (EpiPen) allergic rxn to niuean food jhtlshiavpw-kxg-pyxnflxqg-vitC 1 cap PO HS 10/23/18 01/26/25 History capsule (Glucosamine Complex-MSM capsule) lisinopril 20 mg tablet 10 mg PO HS 04/07/23 01/26/25 History acetaminophen 500 mg tablet 500 mg PO UD PRN Pain 01/26/25 01/26/25 History (Tylenol Extra Strength) magnesium 200 mg tablet 400 mg PO HS 01/26/25 01/26/25 History Past Med/Surg History Problem List (Updated 02/14/25 @ 17:39 by Shawn Calero MD) Osteoarthritis of right knee Pulmonary nodule Lung abnormality Lung nodules Follows with Dr. Shaver ([facility]/[place]) Hyperlipidemia Hypertension GERD (gastroesophageal reflux disease) Encounter for pre-operative examination Medical History Atypical chest pain Noted per [facility] records review, [facility] ER visit 2018 "Resolved atypical chest pain/tightness and shortness of breath from suspected GERD vs esophagitis. Chest tightness and shortness of breath exacerbated by supine position. Seen by GI-outpatient EGD and colonoscopy recommended. Continue with PPI twice daily. Acute coronary syndrome ruled out by negative enzymes, EKG and inpatient cardiac stress echocardiogram." No noted recent/current issues. History of colon polyps Pulmonary nodule Under surveillance Most recent Chest CT 11/2024, [place] [facility] pulm Plan for continued surveillance as of current- patient to discuss if further needed with pulmonary History of gastric ulcer Shoulder problem Hx torn tendons, right shoulder No hx surgery Gallstones Most recent flare 2021 (a few days following knee surgery) History of kidney stones History of skin cancer Forehead, removed Hx of fall Fell down a flight of stairs (08/2021) > shoulder reduction in ER Osteoarthritis GERD (gastroesophageal reflux disease) Hypertension Hyperlipidemia Surgical History History of revision of total knee arthroplasty Left knee patellar revision: Grade 3 view, Gutiérrez#2, ETT 7.5 at [facility] (12/27/21) Hx of cystoscopy Status post left knee replacement Left TKA (07/22/18): SAB x multiple attempts (see report for full details) + PNB at [facility] History of tooth extraction History of esophagogastroduodenoscopy (EGD) x2 History of colonoscopy Social History Smoking Status: Former smoker Tobacco Type: Cigarettes, Pipe and Cigars Age Started Using Tobacco: 11; Age Quit Using Tobacco: 37; packs per day: 2; Smoking End Date: 1977; Second Hand Exposure: No; Do You Dip or Chew Tobacco: No; Hx Alcohol Use: No (alcohol since 1977) Hx Substance Use: No Preferred Language: Macedonian Communication Ability: Effective Pediatric Nurse Required: No Beliefs That Will Affect Care: Mandaen Mandaen Beliefs: Gnosticism marital status: Current Living Situation: Spouse Feels Safe at Home: Yes Assistive Devices: Glasses and Other Assistive Devices Comment: lower partial Review of Systems All systems reviewed & are unremarkable except as noted in HPI & below Physical Exam Constitutional: WD/WN, vitals as above Respiratory: normal respiratory effort; no respiratory distress Cardiovascular: Rate/Rhythm: regular rate and regular rhythm Musculoskeletal: Right knee is varus ,left knee is neutral. Some mild effusion and swelling on the left with moderate swelling on the right. Range of motion 0 to 125 degrees with weightbearing pain medial compartment. Distal circulation sensorimotor exam intact. Skin: no rashes, warm and dry Neurologic: normal touch/pain/proprioception Psychiatric: A+Ox3, euthymic affect Results & Data Diagnostic Findings Right knee x-ray demonstrates grade 4 medial compartment osteoarthritis [id number] with subchondral sclerotic changes and subluxation of the femur medially on the tibia with flattening of the medial femoral condyle consistent with bone loss. Somewhat medially translated patella with narrow joint space consistent with grade 4 patellofemoral osteoarthritis. [employer] knee replacement on his left knee.
[~2025-02-16 07:54] MED LIST changes: -ACETAMINOPHEN 500 MG TAB PO SCH; -BUPIVACAINE 0.25% 30 ML VIAL ONE; +BUPIVACAINE 0.25% PF 30 ML VIAL ONE; -CeleBREX 200 MG CAP PO SCH; -FAMOTIDINE 20 MG TAB PO SCH; -GABAPENTIN 300 MG CAP PO SCH; -LR 500ML BOLUS, THEN 15ML/HR IV SCH; -METOCLOPRAMIDE HCL 10 MG TABLET PO SCH; +PROPOFOL IV EMULSION 10 MG/ML 100 ML VIAL IV ONE; -ROPIVACAINE 0.5% HCL/PF 150 MG, BUPIVACAINE 0.75% MPF 20 ML, EPINEPHrine 30MG/30ML (OR ... INFIL SCH; -TRANEXAMIC ACID 1,000 MG **IV Intra-op IV SCH; -TRANEXAMIC ACID 1,000 MG **IV Pre-op IV SCH; -VANCOMYCIN HCL 1,250 MG in SODIUM CHLORIDE 0.9% 250 ML IV SCH; -ceFAZolin 1000MG 1,000 MG/7.5 ML SYR IV SCH; -ceFAZolin 2000MG 2,000 MG/15 ML SYR IV SCH; -dexAMETHasone 4 MG TAB PO SCH
[2025-02-16] MEDS ORDERED: LIDOCAINE 2% 2 ML VIAL/AMP(20MG/ML) INFIL ONE (08:02)
[2025-02-16] MEDS ORDERED: MIDAZOLAM HCL 1 MG/ML 2ML VIAL ONE (08:02)
[2025-02-16] MEDS: LR 60ML/HR IV SCH (08:23)
[2025-02-16] MEDS: dexAMETHasone**PF** 10 MG/ML VIAL IV SCH (08:23)
[2025-02-16] MEDS: LR 500ML BOLUS, THEN 15ML/HR IV SCH (08:23)
[2025-02-16] MEDS: ACETAMINOPHEN 500 MG TAB PO SCH ×2 (08:23→16:21)
[2025-02-16] MEDS: GABAPENTIN 300 MG CAP PO SCH (08:24)
[2025-02-16] MEDS: FAMOTIDINE 20 MG TAB PO SCH (08:24)
[2025-02-16] MEDS: CeleBREX 200 MG CAP PO SCH (08:24)
[2025-02-16] MEDS: METOCLOPRAMIDE HCL 10 MG TABLET PO SCH (08:25)
[2025-02-16] MEDS ORDERED: ATROPINE SULFATE 0.1 MG/ML 10ML SYR IV PRN ×2 (09:13→10:44)
[2025-02-16] MEDS ORDERED: ONDANSETRON INJ 2 MG/ML 2 ML VIAL IV PRN ×3 (09:13→14:40)
--- NOTE | 2025-02-16 09:52 | History & Physical Bridge Note ---
Date of Service February 16, 2025 History & Physical Bridge Note I have examined the patient, reviewed the History & Physical and in the interval since the performance of the History & Physical I have noted the following changes of clinical significance: no changes noted
[2025-02-16] MEDS: TRANEXAMIC ACID 1,000 MG **IV Pre-op IV SCH (09:53)
[2025-02-16] MEDS ORDERED: ePHEDrine sulfate 50 MG/5 ML SYR ONE (10:53)
[2025-02-16] MEDS: ROPIV 0.5% 246mg, Ketorolac 30mg, EPINEPHrine 0.5mg in NSS INFIL SCH (12:12)
[2025-02-16] MEDS: ORTHO JOINT ANESTHETIC ONE (12:13)
--- NOTE | 2025-02-16 12:38 | Post Operative Brief Note ---
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
--- NOTE | 2025-02-16 13:01 | Operative Report ---
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 Patient had successful left knee replacement in the past. Patient wants proceed with right knee replacement. Right knee has grade 4 medial patellofemoral osteoarthritis and medial compartment osteoarthritis with a varus knee Description of Procedure The patient was taken to the operating room and anesthetized under spinal MAC regional block. Patient was placed supine on the the operating table. A pneumatic tourniquet was placed about the right upper thigh. The knee exam demonstrated 5 through 130 degrees range of motion no instability. The involved leg was elevated exsanguinated with Esmarch bandage and the pneumatic tourniquet was raised to 350 millimeters mercury. A longitudinal incision was made across the anterior knee. Skin flaps were elevated. An incision was made into the medial retinaculum and extended up into the mid third of the quadriceps tendon and extended down to the tibial tubercle. Intra-articular findings demonstrated medial apartment and patellofemoral osteoarthritis grade 4 medial patellofemoral joint and grade 4 medial compartment with eburnated bone and some bone loss. There was a loose body that was excised.. The knee was exposed by excising cruciate ligaments and menisci. The infrapatellar fat pad was resected. The fat pad over the anterior femur at the upper aspect of the articular surface was resected for placement of the component in that area. A subperiosteal peel lateral release was performed around the patella. Aqua mantis was used for hemostasis. The [employer] Nep[employer] journey 2.0 total knee arthroplasty system was utilized for the procedure. The custom femoral cutting guide was pinned in position. The distal femoral cut was made. The size 5, 5 in 1 cutting block was placed. The anterior posterior and chamfer cuts were made. The knee was extended and a free hand cut technique was performed to the patella. The patella width was measured and the width was reproduced using a 35 symmetrical patella component. The excess lateral facet was beveled off to prevent any impingement. 3 drill holes are made for the patella component pegs. The tibia was then subluxed. The custom tibial cutting block was pinned in position and the proximal tibial cut was made with the oscillating saw. Flexion and extension gaps were balanced. Medial and posterior medial releases were required. The size 5 tibial trial was externally rotated in line with the tibial tubercle and pinned in position. The punch for the stem was used. The femoral trial was inserted and centered the notch cutting devices were used and the collet was placed. Tibial trials were used for the insert. The size 12 trial gave balanced ligaments through full range of motion. Patella tracking was assessed with range of motion. The patella tracked centrally. The trials were removed. The Orthomix anesthetic cocktail was injected per protocol. The cut bone surfaces and soft tissue were copiously irrigated with pulsatile lavage saline solution. The final components were cemented with Refobacin cement. The final components were Horn [employer] Nephew journey 2.0 posterior stabilized size 5 right femoral component with a 5 right tibial component with a 12 mm right tibial polyethylene posterior stabilized component and a 35 mm symmetrical patella polyethylene component. Xperience irrigation was placed over metal tray prior to polyethyle insertion. After the cement cured, the knee was then copiously irrigated with pulsatile lavage Xperience solution. 2 drains were brought out laterally connected to Hemovac. The quadriceps tendon and medial retinaculum were closed with interrupted [id number] sutures using #2 FiberWire in the area of the medial retinaculum and distal quadriceps tendon. Additional sutures were placed at the apex of the quadriceps tendon split proximally and at the level of the tibial polyethylene. A 0 strata fix running locking suture was placed from the superior quadriceps split down to the medial retinaculum inferior pole of the patella level. Below that level interrupted number#1 Vicryl sutures were used to repair the medial retinaculum. The knee was taken through full range of motion and repair was secure. Knee range of motion was 0 through 130 degrees. the subcutaneous tissues were closed with 2-0 Vicryl sutures. The skin was closed with surgical kingston. A shannon and Acticoat superficial wound VAC was applied. The tourniquet was let down and the patient had good capillary refill to the extremity. The patient tolerated the procedure well. My physician histology assistant ANNELISE Ga participated as assistant softball coach and was integral part in all aspects of the procedure including prepping, draping, leg positioning, soft tissue retraction, instrument management and assisted in the closure , superficial wound VAC application and will participate in postoperative care the patient. I attest to the content of the Intraoperative Record and any orders documented therein. Any exceptions are noted below.
--- NOTE | 2025-02-16 13:24 | XRay Report ---
XR knee RT 1 or 2V routine CLINICAL HISTORY: Surgical Post Op COMPARISON: None FINDINGS: Right knee prosthesis shows no hardware complication. There is expected soft tissue gas. S kin kingston are present. Postoperative drain is present. IMPRESSION: Unremarkable postoperative exam. ACT 112: Negative or not required by law. Electronically signed by: Mk Kidd M.D. 02/16/2025 1:22 PM
--- NOTE | 2025-02-16 14:35 | Anesthesiology Progress Note ---
Date of Service February 16, 2025 Anesthesia Post Procedure Vital Signs Vital Signs: Temp Pulse Pulse Resp BP Pulse Ox O2 Del Method 02/16/25 14:25 96 H 20 122/67 97 Room Air 02/16/25 14:10 36.4 C L 89 16 124/70 95 Room Air 02/16/25 14:00 87 24 137/65 96 Room Air 02/16/25 13:50 88 24 130/80 97 Room Air 02/16/25 13:40 87 22 117/63 97 Room Air 02/16/25 13:30 91 H 19 129/68 97 Room Air 02/16/25 13:20 83 19 128/66 96 Room Air 02/16/25 13:10 84 19 119/61 96 Room Air 02/16/25 13:00 88 22 118/62 97 Room Air 02/16/25 12:52 36.2 C L 94 H 20 129/67 95 Room Air 02/16/25 08:12 36.5 C 75 20 162/76 H 98 Room Air Pain Intensity Right Knee: Pain Intensity: 0 Transfer of Care Handoff Completed per policy Notes Mental Status: alert / awake / arousable and participated in evaluation Patient Amnestic to Procedure: Yes Nausea / Vomiting: adequately controlled Pain: adequately controlled Airway Patency, RR, SpO2: stable & adequate BP & HR: stable & adequate Hydration State: stable & adequate Neuraxial Anesthesia: was administered and sensory block is resolving Anesthetic Complications: no major complications apparent and Pt Satisfied with anesthetic care
[2025-02-16] MEDS ORDERED: HYDROmorphone INJ 0.5 MG/0.5 ML SYR IV PRN (14:40)
[2025-02-16] MEDS ORDERED: diphenhydrAMINE Capsule 25 MG CAP PO PRN (14:40)
[2025-02-16] MEDS ORDERED: METOCLOPRAMIDE HCL INJ 5 MG/ML 2 ML VIAL IV PRN (14:40)
[2025-02-16] MEDS ORDERED: ALUMINUM/MAGNESIUM SUSP 30 ML UDC PO PRN (14:40)
[2025-02-16] MEDS ORDERED: NALOXONE HCL 0.4 MG/1 ML VIAL/CARP IV PRN (14:40)
[2025-02-16] MEDS ORDERED: MAGNESIUM HYDROXIDE SUSP 30 ML UDC PO PRN (14:40)
[2025-02-16] MEDS ORDERED: KETOROLAC TROMETHAMINE 15 MG/ML VIAL IV PRN (14:40)
[2025-02-16] MEDS: SODIUM CHLORIDE 0.9% 1,000 ML IV SCH (15:30)
[2025-02-16] MEDS: TRANEXAMIC ACID / 0.7% NACL 1,000 MG/100 ML BAG IV SCH (16:22)
[2025-02-16] MEDS ORDERED: EPINEPHrine INJ 1 MG/ML AMP IM PRN (17:41)
[2025-02-16] MEDS ORDERED: NON-FORMULARY MEDICATION (Coenzyme Q10 200 mg Capsule) PO SCH (21:00)
[2025-02-16] MEDS ORDERED: LUTEIN ZEAXANTHIN PO SCH (21:00)
[2025-02-16] MEDS ORDERED: GLUCOSAMINE MSM MAGNESIUM VITC PO SCH (21:00)
[2025-02-16] MEDS: ROSUVASTATIN CALCIUM 5 MG TAB PO SCH (21:37)
[2025-02-16] MEDS: SENNA 8.6 MG TAB PO SCH (21:37)
[2025-02-16] MEDS: CYANOCOBALAMIN (B-12) 2,500 MCG TABLET PO SCH (21:37)
[2025-02-16] MEDS: CHOLECALCIFEROL 125 MCG (5,000 UNITS) TAB PO SCH (21:37)
[2025-02-16] MEDS: DOCUSATE SODIUM 100 MG CAP PO SCH (21:37)
[2025-02-16] MEDS: MAGNESIUM OXIDE 400 MG TAB PO SCH (21:37)
[2025-02-16] MEDS: TAMSULOSIN HCL 0.4 MG CAP PO PRN (21:37)
[2025-02-17 03:34] VITALS: TEMP 97.7
[2025-02-17 06:19] LABS: Hematocrit (blood only) 35.0 % (42.0-52.0); Hemoglobin 12.2 g/dl (14.0-18.0); Mean Corpuscular Hemoglobin 31.0 pg (25.0-34.0); Mean Corpuscular Volume 88.8 fL (80.0-100.0); Platelet Count 221 K/uL (130-400); RDW Standard Deviation 41.4 fL (36.4-46.3); Red Blood Count 3.94 M/uL (4.70-6.10); White Blood Count 19.85 K/ul (4.8-10.8)
[2025-02-17 06:40] LABS: Anion Gap 8.0 (3-11); Blood Urea Nitrogen 23.0 mg/dl (6-23); Calcium 9.0 mg/dl (8.6-10.3); Carbon Dioxide 22.0 mmol/L (21-32); Chloride 106.0 mmol/L (98-107); Creatinine Clr Calc Pharmacy 42.7 ml/min; Glucose 132.0 mg/dl (70-99(Fasting)); Potassium 4.7 mmol/L (3.5-5.1); Sodium 136.0 mmol/L (136-145)
[2025-02-17 07:54] VITALS: BP 152/80; PULSE 96; RESP 15; O2SAT 95
--- NOTE | 2025-02-17 08:15 | Orthopedic Progress Note ---
Date of Service February 17, 2025 Assessment & Plan (1) Osteoarthritis of right knee: Plan: Postop day 1 right total knee replacement stable for discharge. Patient's Hemovac drain can be discontinued before discharge. Patient wants to home health home PT which is being arranged. Follow-up in 2 weeks for staple removal. Torrey protocol for wound care. End-stage right knee osteoarthritis failed conservative management. Patient has history of left knee replacement after which he had a fall and some patellar loosening that had to be addressed but that condition was corrected and he is satisfied with outcome on the left knee and wants to proceed with a right knee replacement at this time. Admission and Anticipated Discharge Date Admission Date: February 16, 2025 Subjective No complaints no pain Review of Systems Review of Systems: No chest pain shortness of breath feels well Physical Exam Musculoskeletal: 90 degrees flexion full extension indepe ndent straight leg raise normal circulation sensorimotor exam dressing dry and intact. Results & Data Vital Signs (Past 12 Hours) Vital Signs Temp Pulse Pulse Resp BP Pulse Ox O2 Del Method 02/17/25 07:54 36.5 C 96 H 15 152/80 H 95 Room Air 02/17/25 06:00 36.5 C 98 H 16 136/68 96 Room Air 02/17/25 02:00 36.5 C 116 H 16 176/93 H 96 Room Air 02/16/25 22:00 36.6 C 106 H 16 179/104 H 96 Room Air 02/16/25 21:48 106 H 16 174/92 H 97 Room Air Diagnostic Findings Well aligned total knee replacement. (1) Osteoarthritis of right knee Osteoarthritis type: primary Qualified Code(s): M17.11 - Unilateral primary osteoarthritis, right knee
[2025-02-17] MEDS: ASPIRIN 81 MG ECTAB PO SCH (09:42)
[2025-02-17] MEDS: MULTIVITAMIN TAB PO SCH (09:42)
[2025-02-17] MEDS: dexAMETHasone 10 MG in SYRINGE 0 ML IV SCH (09:42)
== END 2025-02-17 11:45 | disposition home health service (06) ==
LOC: 3E 07:54 → ASU 07:54